=== PATIENT | female | born 1965 | race Caucasian/White ===

== ENCOUNTER → 2017-10-31 11:02 | Outpatient (CLI) | payer OTHER, SELFPAY | PROVIDERS: PCP Internal Medicine; Visit Provider Internal Medicine | DX: J11.1 Influenza due to unidentified influenza virus with other respiratory manifestations (principal) | CPT/HCPCS: 87275; 87276 ==

== ENCOUNTER → 2018-10-24 10:16 | Outpatient (POV) | payer OTHER, SELFPAY ==
--- NOTE | 2018-10-24 14:40 | XR_ITS ---
EXAM: XR cervical spine 5V HISTORY: Neck pain ITS.REASON: NECK AND LOW BACK PAIN ORDERING PHYSICIAN: Sharon Delatorre MD PATIENT AGE: 53 years COMPARISON: None FINDINGS: Normal alignment. No fracture or dislocation. No lytic or blastic change. There is 2 mm anterolisthesis of C4 on C5 and may be positional. No cervical ribs. No prevertebral soft tissue swelling. No significant degenerative change. The disc spaces are preserved. IMPRESSION: Essentially negative cervical spine
--- NOTE | 2018-10-24 14:40 | XR_ITS ---
EXAM: XR lumbar spine min 4V HISTORY: Low back pain ITS.REASON: NECK AND LOW BACK PAIN ORDERING PHYSICIAN: Sharon Delatorre MD PATIENT AGE: 53 years COMPARISON: None FINDINGS: Minimal lumbar curvature convex left. Normal alignment. No fracture or dislocation. No significant degenerative change. No lytic or blastic change Nonspecific 4 mm calcific density is present in the left upper quadrant and could represent renal stone. There is mild osteophyte formation along the right SI joint inferiorly IMPRESSION: Minimal levocurvature. Possible left nephrolithiasis
== END ==
PROVIDERS: PCP Internal Medicine; Visit Provider Dermatology
DX: M54.2 Cervicalgia (principal); M54.5 Low back pain; M53.3 Sacrococcygeal disorders, not elsewhere classified
CPT/HCPCS: 72050; 72110

== ENCOUNTER → 2019-03-20 14:25 | Outpatient (POV) | payer OTHER, SELFPAY | PROVIDERS: Visit Provider Dermatology | DX: Z00.00 Encounter for general adult medical examination without abnormal findings (principal) ==

== ENCOUNTER → 2019-03-27 09:50 | Outpatient (POV) | payer OTHER, SELFPAY | PROVIDERS: Visit Provider Dermatology | DX: Z00.00 Encounter for general adult medical examination without abnormal findings (principal) ==

== ENCOUNTER → 2019-04-10 08:30 | Outpatient (POV) | payer OTHER, SELFPAY | PROVIDERS: Visit Provider Dermatology | DX: Z00.00 Encounter for general adult medical examination without abnormal findings (principal) ==

== ENCOUNTER → 2019-10-03 07:26 | Outpatient (CLI) | payer OTHER, SELFPAY ==
[2019-10-03 08:34] LABS: Basophils # 0.1 K/mm3 (0-0.2); Eosinophils # 0.2 K/mm3 (0.0-0.4); Eosinophils % 3.5 % (0.1-12.0); Hematocrit 42.4 % (37.0-47.0); Hemoglobin 13.9 g/dL (12.2-16.2); Lymphocytes # 1.9 K/mm3 (0.7-4.5); Lymphocytes % 30.4 % (10-50); Mean Corpuscular HGB Conc 32.7 g/dL (31.8-35.4); Mean Corpuscular Volume 85.6 fl (81-99); Mean Platelet Volume 8.8 fl (7.4-10.4); Monocytes # 0.6 K/mm3 (0.1-1.0); Monocytes % 9.5 % (1.7-9.3); Neutrophils # 3.4 K/mm3 (1.8-7.8); Neutrophils % 55.5 % (37.0-80.0); Platelet Count 280 K/mm3 (142-424); Red Blood Count 4.96 M/mm3 (4.20-5.40); Red Cell Distribution Width 12.3 % (11.5-17.5); White Blood Count 6.1 K/mm3 (4.8-10.8)
[2019-10-03 11:22] LABS: Alanine Aminotransferase 21 U/L (12-78); Albumin Level 3.9 gm/dL (3.4-5.0); Albumin/Globulin Ratio 1.3 (1.1-1.8); Alkaline Phosphatase 103 U/L (46-116); Anion Gap 11.9 mEq/L (5-15); Bilirubin,Total 0.5 mg/dL (0.2-1.0); Blood Urea Nitrogen 14 mg/dL (7-18); Calcium 9.4 mg/dL (8.5-10.1); Carbon Dioxide 29 mmol/L (21.0-32.0); Chloride 103 mmol/L (98-107); Creatinine,Serum 0.72 mg/dL (0.55-1.02); Estimated Glomerular Filt Rate 85 ml/min (>60); GFR (African American) 103 ML/MIN (>60); Glucose 101 mg/dL (74-106); Potassium 3.9 mmoL/L (3.5-5.1); Sodium 140 mmol/L (136-145); Total Protein,Serum 6.9 gm/dL (6.4-8.2)
[2019-10-03 12:00] LABS: Aspartate Amino Transferase 27 U/L (15-37)
== END ==
PROVIDERS: Visit Provider Internal Medicine
DX: M06.9 Rheumatoid arthritis, unspecified (principal); Z51.81 Encounter for therapeutic drug level monitoring
CPT/HCPCS: 36415; 80053; 85025

== ENCOUNTER → 2019-10-22 14:24 | Outpatient (POV) | payer OTHER, SELFPAY | PROVIDERS: Visit Provider Nurse Practitioner Family | DX: Z00.00 Encounter for general adult medical examination without abnormal findings (principal) ==

== ENCOUNTER → 2020-01-29 08:02 | Outpatient (CLI) | payer OTHER, SELFPAY ==
[2020-01-29 08:08] LABS: MANUAL DIFFERENTIAL MANUAL DIFFERENTIAL (MANUAL DIFF)
[2020-01-29 08:31] LABS: Basophils # 0.1 K/mm3 (0-0.2); Basophils % 0.7 % (0.1-2.0); Eosinophils # 0.5 K/mm3 (0.0-0.4); Eosinophils % 5.4 % (0.1-12.0); Hematocrit 42.3 % (37.0-47.0); Hemoglobin 13.8 g/dL (12.2-16.2); Lymphocytes # 2.3 K/mm3 (0.7-4.5); Lymphocytes % 26.6 % (10-50); Mean Corpuscular HGB Conc 32.5 g/dL (31.8-35.4); Mean Corpuscular Hemoglobin 27.4 pg (27.0-31.2); Mean Corpuscular Volume 84.4 fl (81-99); Mean Platelet Volume 8.6 fl (7.4-10.4); Monocytes # 0.6 K/mm3 (0.1-1.0); Monocytes % 7.2 % (1.7-9.3); Neutrophils # 5.2 K/mm3 (1.8-7.8); Neutrophils % 60.2 % (37.0-80.0); Platelet Count 295 K/mm3 (142-424); Red Blood Count 5.01 M/mm3 (4.20-5.40); Red Cell Distribution Width 12.9 % (11.5-17.5); White Blood Count 8.6 K/mm3 (4.8-10.8)
[2020-01-29 08:44] LABS: Chloride 101 mmol/L (98-107); Potassium 4.2 mmoL/L (3.5-5.1); Sodium 135 mmol/L (136-145)
[2020-01-29 08:47] LABS: Alanine Aminotransferase 21 U/L (12-78); Albumin Level 4.6 g/dl (3.5-5.0); Albumin/Globulin Ratio 1.6 (1.1-1.8); Alkaline Phosphatase 99 U/L (38-126); Anion Gap 5.2 mEq/L (5-15); Aspartate Amino Transferase 37 U/L (14-36); Bilirubin,Total 0.4 mg/dl (0.2-1.3); Blood Urea Nitrogen 17 mg/dl (7-17); Calcium 9.5 mg/dl (8.4-10.2); Carbon Dioxide 33 mmol/L (22.0-30.0); Estimated Glomerular Filt Rate 75 ml/min (>60); GFR (African American) 91 ML/MIN (>60); Globulin 2.9 g/dL (1.3-3.2); Glucose 108 mg/dl (74-100); Total Protein,Serum 7.5 g/dl (6.3-8.2)
[2020-01-29 11:23] LABS: Lymphocytes % 32 % (10-50); Monocytes % 8 % (2-9); Neutrophils % 60 % (42-76); Total Cells Counted 100
[2020-01-29 11:24] LABS: Platelet Estimate Normal; RBC Morphology Normal
== END ==
PROVIDERS: Visit Provider Specialist
DX: G50.0 Trigeminal neuralgia (principal)
CPT/HCPCS: 36415; 80053; 85007; 85014; 85018; 85048; 85049

== ENCOUNTER → 2020-02-18 13:12 | Outpatient (POV) | payer OTHER, SELFPAY | PROVIDERS: PCP Specialist; Visit Provider Specialist | DX: M79.604 Pain in right leg (principal); M79.605 Pain in left leg; M79.601 Pain in right arm; R20.2 Paresthesia of skin | CPT/HCPCS: 95886; 95910 ==

== ENCOUNTER → 2020-02-18 14:37 | Outpatient (CLI) | payer OTHER, SELFPAY ==
--- NOTE | 2020-02-18 14:37 | MR_ITS ---
PROCEDURE: MR HEAD/BRAIN WO/W CON CLINICAL INDICATION: Eval of acute severe constant facial ear pain Severe facial pain and ear pain COMPARISON: No exams were available for comparison TECHNIQUE: Routine multiplanar multi echo sequences are performed without and with gadolinium enhancement. FINDINGS: No midline shift, mass effect, intracranial hemorrhage, hydrocephalus, or acute cortical infarction. There is normal sweet-white matter differentiation. No enhancing lesions are evident. The cerebellopontine angles, cerebellum, and brainstem are unremarkable. The pituitary, optic chiasm, corpus callosum, and craniocervical junction have an unremarkable appearance. No mastoid effusion or sinus air-fluid level. The IMPRESSION: Unremarkable MRI of the brain without and with contrast Dictated by: Jian Craig MD 02/19/2020 14:05 Electronically signed by Jian Craig MD in [facility] 02/19/2020 14:05
== END ==
PROVIDERS: PCP Internal Medicine; Visit Provider Specialist
DX: G50.0 Trigeminal neuralgia (principal); H92.09 Otalgia, unspecified ear; M54.2 Cervicalgia; R51 Headache
CPT/HCPCS: 70553; A9576

== ENCOUNTER → 2020-03-03 15:08 | Outpatient (CLI) | payer OTHER, SELFPAY ==
--- NOTE | 2020-03-03 15:12 | XR_ITS ---
PROCEDURE: XR CERVICAL SPINE W FLEX/EXT CLINICAL INDICATION: NECK PAIN COMPARISON: [id number] XR cervical spine 5V from 10/24/2018 FINDINGS: Normal alignment. No acute fracture or dislocation. Mild degenerative disc disease C3-C4 and C4-C5 and C6-C7. Mild uncovertebral hypertrophy with mild foraminal narrowing on the right at C3-C4. There is minimal anterolisthesis of C4 on C5 of 2 mm. This does not significantly increase with flexion and become normal on extension. No prevertebral soft tissue swelling. There is mild head tilt toward the right with mild cervical thoracic curvature convex left. IMPRESSION: Mild cervical spondylosis. Mild anterolisthesis of C4 on C5 which does not significantly increase in flexion and decreases on extension Dictated by: Jian Craig MD 03/03/2020 15:37 Electronically signed by Jian Craig MD in [facility] 03/03/2020 15:37
== END ==
PROVIDERS: PCP Internal Medicine; Visit Provider Specialist
DX: M54.2 Cervicalgia (principal)
CPT/HCPCS: 72052

== ENCOUNTER → 2020-03-12 13:03 | Outpatient (CLI) | payer OTHER, SELFPAY ==
--- NOTE | 2020-03-12 13:03 | MR_ITS ---
PROCEDURE: MR CERVICAL SPINE WO CON CLINICAL INDICATION: evaluation for cord compression COMPARISON: No exams were available for comparison TECHNIQUE: Standard multiplanar multiecho sequences are performed without contrast. 3-D MIP and myelographic images are also rendered and reviewed FINDINGS: There is uniform fat marrow signal hyperintensity. Disc spaces, spinal cord, mid brain, and the cerebellar tonsils are unremarkable. Bony structures are in good alignment. At the C2-3 disc space there is mild overgrowth of the right uncovertebral joint producing mild neural foraminal stenosis. At the C3-4 disc space there is mild overgrowth of the right uncovertebral joint producing mild right neural foraminal stenosis. At the C4-C5 disc spaces there is no significant spinal stenosis. At the C5-C6 disc space there is mild overgrowth of the bilateral uncovertebral joints producing mild bilateral neural foraminal stenosis, left greater than right At the C6-7 disc space there is a broad-based disc protrusion producing mild central canal and mild right neural foraminal stenosis. At the C7-T1 disc space there is no significant spinal stenosis. The paracervical soft tissues are unremarkable. IMPRESSION: Mild multilevel spinal stenosis as described above. Dictated by: Surya Colindres 03/12/2020 14:30 Electronically signed by Surya Colindres in [place] 03/12/2020 14:30
[2020-03-12 15:29] LABS: Blood Urea Nitrogen 12 mg/dl (7-17); Carbon Dioxide 37 mmol/L (22.0-30.0); Chloride 95 mmol/L (98-107); Estimated Glomerular Filt Rate 88 ml/min (>60); GFR (African American) 106 ML/MIN (>60); Glucose 121 mg/dl (74-100); Sodium 137 mmol/L (136-145)
== END ==
PROVIDERS: PCP Internal Medicine; Visit Provider Specialist
DX: M54.2 Cervicalgia (principal); G89.29 Other chronic pain; R20.2 Paresthesia of skin
CPT/HCPCS: 36415; 72141; 76376; 80048; 82607

== ENCOUNTER → 2020-03-12 14:11 | Outpatient (CLI) | payer OTHER, SELFPAY | PROVIDERS: Visit Provider Specialist | DX: M54.2 Cervicalgia (principal) | CPT/HCPCS: 36415; 80048; 82607 ==

== ENCOUNTER → 2020-04-07 10:32 | Outpatient (CLI) | payer OTHER, SELFPAY | PROVIDERS: PCP Internal Medicine; Visit Provider Specialist | DX: E87.2 Acidosis (principal); M54.2 Cervicalgia | CPT/HCPCS: 94762 ==

== ENCOUNTER → 2020-04-26 11:22 | Outpatient (CLI) | payer OTHER, SELFPAY ==
[2020-04-26 11:41] LABS: Basophils # 0.1 K/mm3 (0-0.2); Basophils % 0.6 % (0.1-2.0); Eosinophils # 0.3 K/mm3 (0.0-0.4); Eosinophils % 2.6 % (0.1-12.0); Hematocrit 44.6 % (37.0-47.0); Hemoglobin 15.5 g/dL (12.2-16.2); Lymphocytes % 17.7 % (10-50); Mean Corpuscular HGB Conc 34.6 g/dL (31.8-35.4); Mean Corpuscular Hemoglobin 30.3 pg (27.0-31.2); Mean Corpuscular Volume 87.5 fl (81-99); Mean Platelet Volume 8.6 fl (7.4-10.4); Monocytes # 0.5 K/mm3 (0.1-1.0); Monocytes % 4.8 % (1.7-9.3); Neutrophils # 8.3 K/mm3 (1.8-7.8); Neutrophils % 74.3 % (37.0-80.0); Platelet Count 246 K/mm3 (142-424); Red Cell Distribution Width 12.6 % (11.5-17.5); White Blood Count 11.2 K/mm3 (4.8-10.8)
[2020-04-26 12:23] LABS: Chloride 97 mmol/L (98-107); Potassium 4.2 mmoL/L (3.5-5.1); Sodium 139 mmol/L (136-145)
[2020-04-26 12:26] LABS: Alanine Aminotransferase 12 U/L (12-78); Albumin Level 4.5 g/dl (3.5-5.0); Albumin/Globulin Ratio 1.4 (1.1-1.8); Alkaline Phosphatase 143 U/L (38-126); Anion Gap 15.2 mEq/L (5-15); Aspartate Amino Transferase 26 U/L (14-36); Bilirubin,Total 0.5 mg/dl (0.2-1.3); Blood Urea Nitrogen 13 mg/dl (7-17); Calcium 9.8 mg/dl (8.4-10.2); Carbon Dioxide 31 mmol/L (22.0-30.0); Estimated Glomerular Filt Rate 88 ml/min (>60); GFR (African American) 106 ML/MIN (>60); Globulin 3.2 g/dL (1.3-3.2); Glucose 100 mg/dl (74-100); Total Protein,Serum 7.7 g/dl (6.3-8.2)
[2020-04-26 12:58] LABS: Thyroid Stimulating Hormone 1.87 uIU/mL (0.465-4.68)
== END ==
PROVIDERS: Visit Provider Internal Medicine
DX: E03.9 Hypothyroidism, unspecified (principal); K52.9 Noninfective gastroenteritis and colitis, unspecified
CPT/HCPCS: 36415; 80053; 84443; 85025

== ENCOUNTER → 2020-09-04 08:43 | Outpatient (CLI) | payer OTHER, SELFPAY ==
[2020-09-04 09:45] LABS: Chloride 99 mmol/L (98-107); Potassium 4.3 mmoL/L (3.5-5.1); Sodium 139 mmol/L (136-145)
[2020-09-04 09:47] LABS: Blood Urea Nitrogen 14 mg/dl (7-17); Estimated Glomerular Filt Rate 75 ml/min (>60); GFR (African American) 90 ML/MIN (>60)
[2020-09-04 09:48] LABS: Alanine Aminotransferase 12 U/L (12-78); Albumin Level 4.8 g/dl (3.5-5.0); Albumin/Globulin Ratio 1.5 (1.1-1.8); Alkaline Phosphatase 137 U/L (38-126); Anion Gap 11.3 mEq/L (5-15); Aspartate Amino Transferase 27 U/L (14-36); Bilirubin,Total 0.4 mg/dl (0.2-1.3); Carbon Dioxide 33 mmol/L (22.0-30.0); Globulin 3.2 g/dL (1.3-3.2); Glucose 106 mg/dl (74-100)
[2020-09-04 09:53] LABS: C-Reactive Protein 3.5 mg/L (0-4)
[2020-09-04 10:02] LABS: Basophils # 0.1 K/mm3 (0-0.2); Eosinophils # 0.3 K/mm3 (0.0-0.4); Eosinophils % 3.7 % (0.1-12.0); Hematocrit 43.6 % (37.0-47.0); Hemoglobin 14.6 g/dL (12.2-16.2); Lymphocytes # 2.3 K/mm3 (0.7-4.5); Lymphocytes % 31.9 % (10-50); Mean Corpuscular HGB Conc 33.5 g/dL (31.8-35.4); Mean Corpuscular Hemoglobin 29.6 pg (27.0-31.2); Mean Corpuscular Volume 88.2 fl (81-99); Mean Platelet Volume 8.3 fl (7.4-10.4); Monocytes # 0.6 K/mm3 (0.1-1.0); Neutrophils % 55.5 % (37.0-80.0); Platelet Count 283 K/mm3 (142-424); Red Blood Count 4.95 M/mm3 (4.20-5.40); White Blood Count 7.1 K/mm3 (4.8-10.8)
[2020-09-04 10:36] LABS: Erythrocyte Sedimentation Rate 17 mm/hr (0-30)
== END ==
PROVIDERS: Visit Provider Internal Medicine
DX: M05.9 Rheumatoid arthritis with rheumatoid factor, unspecified (principal); Z51.81 Encounter for therapeutic drug level monitoring; Z91.89 Other specified personal risk factors, not elsewhere classified
CPT/HCPCS: 36415; 80053; 85025; 85651; 86140

== ENCOUNTER → 2020-09-30 13:55 | Outpatient (CLI) | payer OTHER, SELFPAY ==
[2020-10-01 09:19] LABS: Covid-19 Nasal PCR Sendout P&C NEGATIVE
== END ==
PROVIDERS: PCP Internal Medicine; Visit Provider Internal Medicine
DX: Z11.52 Encounter for screening for COVID-19 (principal)
CPT/HCPCS: U0004

== ENCOUNTER → 2020-12-29 12:12 | Outpatient (CLI) | payer OTHER, SELFPAY ==
[2020-12-29 13:14] LABS: Hemoglobin A1C 5.5 % (4.0-6.0)
[2020-12-29 13:40] LABS: Ferritin 201 ng/ml (11.1-264)
== END ==
PROVIDERS: Visit Provider Nurse Practitioner Family
DX: E83.10 Disorder of iron metabolism, unspecified (principal); R73.9 Hyperglycemia, unspecified; G25.81 Restless legs syndrome
CPT/HCPCS: 82728; 83036

== ENCOUNTER → 2021-01-26 07:30 | Outpatient (CLI) | payer OTHER, SELFPAY ==
[2021-01-26 08:27] LABS: Basophils # 0.1 K/mm3 (0-0.2); Basophils % 1.3 % (0.1-2.0); Eosinophils # 0.5 K/mm3 (0.0-0.4); Eosinophils % 7.9 % (0.1-12.0); Hematocrit 41.3 % (37.0-47.0); Hemoglobin 13.9 g/dL (12.2-16.2); Lymphocytes # 2.4 K/mm3 (0.7-4.5); Mean Corpuscular HGB Conc 33.7 g/dL (31.8-35.4); Mean Corpuscular Hemoglobin 28.6 pg (27.0-31.2); Mean Corpuscular Volume 84.9 fl (81-99); Mean Platelet Volume 8.5 fl (7.4-10.4); Monocytes # 0.4 K/mm3 (0.1-1.0); Neutrophils # 2.8 K/mm3 (1.8-7.8); Neutrophils % 44.9 % (37.0-80.0); Platelet Count 263 K/mm3 (142-424); Red Blood Count 4.86 M/mm3 (4.20-5.40); Red Cell Distribution Width 12.8 % (11.5-17.5); White Blood Count 6.2 K/mm3 (4.8-10.8)
[2021-01-26 09:12] LABS: Alanine Aminotransferase 13 U/L (12-78); Albumin Level 4.6 g/dl (3.5-5.0); Albumin/Globulin Ratio 1.6 (1.1-1.8); Alkaline Phosphatase 112 U/L (38-126); Anion Gap 10.5 mEq/L (5-15); Aspartate Amino Transferase 35 U/L (14-36); Bilirubin,Total 0.5 mg/dl (0.2-1.3); Blood Urea Nitrogen 16 mg/dl (7-17); Calcium 9.7 mg/dl (8.4-10.2); Carbon Dioxide 31 mmol/L (22.0-30.0); Chloride 102 mmol/L (98-107); Estimated Glomerular Filt Rate 75 ml/min (>60); GFR (African American) 90 ML/MIN (>60); Globulin 2.9 g/dL (1.3-3.2); Glucose 99 mg/dl (74-100); Potassium 4.5 mmoL/L (3.5-5.1); Sodium 139 mmol/L (136-145); Total Protein,Serum 7.5 g/dl (6.3-8.2)
[2021-01-26 09:17] LABS: C-Reactive Protein 3.1 mg/L (0-4)
[2021-01-26 09:24] LABS: Erythrocyte Sedimentation Rate 12 mm/hr (0-30)
== END ==
PROVIDERS: Visit Provider Nurse Practitioner Family
DX: M05.9 Rheumatoid arthritis with rheumatoid factor, unspecified (principal); Z51.81 Encounter for therapeutic drug level monitoring
CPT/HCPCS: 36415; 80053; 85025; 85651; 86140

== ENCOUNTER → 2021-03-24 09:58 | Outpatient (CLI) | payer BC, SELFPAY ==
--- NOTE | 2021-03-24 10:04 | XR_ITS ---
PROCEDURE: XR CERVICAL SPINE 5V CLINICAL INDICATION: LT NECK PAIN COMPARISON: CR XR CERVICAL SPINE W FLEX/EXT from 03/03/2020 FINDINGS: No fracture or dislocation. No lytic or blastic change. There is normal mineralization. Normal alignment. The disc spaces are well preserved. No foraminal narrowing apparent. No cervical rib. There is 1-2 mm anterolisthesis of C4 on C5 which may be physiologic Other findings:None. IMPRESSION: No acute findings, essentially negative cervical spine Dictated by: Jian Craig MD 03/24/2021 11:28 Jian Craig MD in [facility] 03/24/2021 11:28
== END ==
PROVIDERS: PCP Internal Medicine; Visit Provider Internal Medicine
DX: M54.2 Cervicalgia (principal)
CPT/HCPCS: 72050

== ENCOUNTER → 2021-03-31 10:28 | Outpatient (CLI) | payer BC, SELFPAY ==
--- NOTE | 2021-03-31 10:32 | XR_ITS ---
PROCEDURE: XR CHEST 2V CLINICAL HISTORY: SOB WITH EXERTION COMPARISON: No exams were available for comparison FINDINGS: The cardiomediastinal silhouette and pulmonary vascularity are within normal limits. The lungs are clear without infiltrates, suspicious nodules, or pleural effusions. There is evidence of old granulomatous disease. Mild midthoracic curvature convex right. IMPRESSION: No acute findings. Dictated by: Jian Craig MD 03/31/2021 11:14 Jian Craig MD in [place] 03/31/2021 11:14
== END ==
PROVIDERS: PCP Internal Medicine; Visit Provider Internal Medicine
DX: R06.02 Shortness of breath (principal); R06.09 Other forms of dyspnea
CPT/HCPCS: 71046

== ENCOUNTER → 2021-05-21 07:51 | Outpatient (CLI) | payer BC, SELFPAY ==
[2021-05-21 08:38] LABS: Basophils # 0.1 K/mm3 (0-0.2); Eosinophils # 0.5 K/mm3 (0.0-0.4); Eosinophils % 5.7 % (0.1-12.0); Hematocrit 43.4 % (37.0-47.0); Hemoglobin 14.1 g/dL (12.2-16.2); Lymphocytes # 2.6 K/mm3 (0.7-4.5); Lymphocytes % 32.3 % (10-50); Mean Corpuscular HGB Conc 32.5 g/dL (31.8-35.4); Mean Corpuscular Hemoglobin 28.7 pg (27.0-31.2); Mean Corpuscular Volume 88.4 fl (81-99); Mean Platelet Volume 8.9 fl (7.4-10.4); Monocytes # 0.7 K/mm3 (0.1-1.0); Monocytes % 8.2 % (1.7-9.3); Neutrophils # 4.2 K/mm3 (1.8-7.8); Neutrophils % 52.8 % (37.0-80.0); Platelet Count 295 K/mm3 (142-424); Red Blood Count 4.91 M/mm3 (4.20-5.40); Red Cell Distribution Width 12.9 % (11.5-17.5)
[2021-05-21 08:50] LABS: Chloride 103 mmol/L (98-107)
[2021-05-21 08:51] LABS: Potassium 4.4 mmoL/L (3.5-5.1); Sodium 141 mmol/L (136-145)
[2021-05-21 08:53] LABS: Alanine Aminotransferase 20 U/L (12-78); Alkaline Phosphatase 105 U/L (38-126); Anion Gap 12.4 mEq/L (5-15); Aspartate Amino Transferase 32 U/L (14-36); Bilirubin,Total 0.2 mg/dl (0.2-1.3); Blood Urea Nitrogen 13 mg/dl (7-17); Carbon Dioxide 30 mmol/L (22.0-30.0); Estimated Glomerular Filt Rate 75 ml/min (>60); GFR (African American) 90 ML/MIN (>60)
[2021-05-21 08:54] LABS: Albumin Level 4.1 g/dl (3.5-5.0); Albumin/Globulin Ratio 1.4 (1.1-1.8); Calcium 9.5 mg/dl (8.4-10.2); Globulin 2.9 g/dL (1.3-3.2); Glucose 102 mg/dl (74-100)
[2021-05-21 08:59] LABS: C-Reactive Protein 2.8 mg/L (0-4)
[2021-05-21 09:16] LABS: Erythrocyte Sedimentation Rate 12 mm/hr (0-30)
== END ==
PROVIDERS: Visit Provider Internal Medicine
DX: M05.9 Rheumatoid arthritis with rheumatoid factor, unspecified (principal); Z51.81 Encounter for therapeutic drug level monitoring
CPT/HCPCS: 36415; 80053; 85025; 85651; 86140

== ENCOUNTER → 2021-06-11 08:56 | Outpatient (CLI) | payer BC, SELFPAY | PROVIDERS: PCP Internal Medicine; Visit Provider Nurse Practitioner | DX: Z20.822 Contact with and (suspected) exposure to COVID-19 (principal); U07.1 COVID-19 | CPT/HCPCS: C9803; U0003; U0005 ==

== ENCOUNTER 2021-06-18 07:51 | Outpatient (CLI) | payer BC, SELFPAY ==
[2021-06-18] VITALS (8 sets, daily range): BP systolic 115–131; BP diastolic 70–85; PULSE 62–70; RESP 16; TEMP 36.8–37.1; O2SAT 95–97
== END 2021-06-18 11:02 | disposition home or self-care (01) ==
PROVIDERS: PCP Internal Medicine; Visit Provider Internal Medicine
DX: U07.1 COVID-19 (principal)
CPT/HCPCS: 96365

== ENCOUNTER → 2021-10-08 08:14 | Outpatient (CLI) | payer BC, SELFPAY | PROVIDERS: PCP Internal Medicine; Visit Provider Nurse Practitioner | DX: Z20.822 Contact with and (suspected) exposure to COVID-19 (principal) | CPT/HCPCS: C9803; U0003; U0005 ==

== ENCOUNTER → 2021-10-12 10:12 | Outpatient (CLI) | payer BC, SELFPAY ==
[2021-10-12 11:43] LABS: Basophils # 0.1 K/mm3 (0-0.2); Basophils % 1.3 % (0.1-2.0); Eosinophils # 0.2 K/mm3 (0.0-0.4); Eosinophils % 3.8 % (0.1-12.0); Hematocrit 44.8 % (37.0-47.0); Hemoglobin 14.6 g/dL (12.2-16.2); Lymphocytes # 1.9 K/mm3 (0.7-4.5); Lymphocytes % 29.6 % (10-50); Mean Corpuscular HGB Conc 32.6 g/dL (31.8-35.4); Mean Corpuscular Hemoglobin 28.7 pg (27.0-31.2); Mean Corpuscular Volume 88.2 fl (81-99); Mean Platelet Volume 8.7 fl (7.4-10.4); Monocytes # 0.5 K/mm3 (0.1-1.0); Monocytes % 7.3 % (1.7-9.3); Neutrophils # 3.7 K/mm3 (1.8-7.8); Neutrophils % 58.1 % (37.0-80.0); Platelet Count 280 K/mm3 (142-424); Red Blood Count 5.08 M/mm3 (4.20-5.40); Red Cell Distribution Width 12.9 % (11.5-17.5); White Blood Count 6.4 K/mm3 (4.8-10.8)
[2021-10-12 12:56] LABS: Alanine Aminotransferase 13 U/L (12-78); Albumin/Globulin Ratio 1.6 (1.1-1.8); Alkaline Phosphatase 121 U/L (38-126); Anion Gap 13.3 mEq/L (5-15); Aspartate Amino Transferase 36 U/L (14-36); Bilirubin,Total 0.4 mg/dl (0.2-1.3); Blood Urea Nitrogen 17 mg/dl (7-17); Calcium 10.2 mg/dl (8.4-10.2); Carbon Dioxide 32 mmol/L (22.0-30.0); Chloride 97 mmol/L (98-107); Estimated Glomerular Filt Rate 74 ml/min (>60); GFR (African American) 90 ML/MIN (>60); Globulin 3.2 g/dL (1.3-3.2); Glucose 92 mg/dl (74-100); Potassium 4.3 mmoL/L (3.5-5.1); Sodium 138 mmol/L (136-145); Total Protein,Serum 8.2 g/dl (6.3-8.2)
[2021-10-12 13:01] LABS: C-Reactive Protein 2.6 mg/L (0-4)
[2021-10-12 13:26] LABS: Thyroid Stimulating Hormone 1.79 uIU/mL (0.465-4.68)
[2021-10-12 13:39] LABS: Erythrocyte Sedimentation Rate 9 mm/hr (0-30)
== END ==
PROVIDERS: PCP Internal Medicine; Visit Provider Nurse Practitioner Family
DX: M05.9 Rheumatoid arthritis with rheumatoid factor, unspecified (principal); E03.9 Hypothyroidism, unspecified; Z51.81 Encounter for therapeutic drug level monitoring
CPT/HCPCS: 36415; 80053; 84443; 85025; 85651; 86140

== ENCOUNTER → 2022-01-19 07:59 | Outpatient (CLI) | payer BC, SELFPAY ==
[2022-01-19 10:06] LABS: Hematocrit 43.4 % (37.0-47.0); Hemoglobin 14.5 g/dL (12.2-16.2); Mean Corpuscular Volume 87.4 fl (81-99); Red Blood Count 4.96 M/mm3 (4.20-5.40)
[2022-01-19 10:07] LABS: Basophils # 0.2 K/mm3 (0-0.2); Basophils % 2.2 % (0.1-2.0); Eosinophils # 0.4 K/mm3 (0.0-0.4); Eosinophils % 5.1 % (0.1-12.0); Erythrocyte Sedimentation Rate 12 mm/hr (0-30); Lymphocytes # 2.1 K/mm3 (0.7-4.5); Lymphocytes % 29.1 % (10-50); Mean Corpuscular HGB Conc 33.4 g/dL (31.8-35.4); Mean Corpuscular Hemoglobin 29.2 pg (27.0-31.2); Mean Platelet Volume 8.8 fl (7.4-10.4); Monocytes # 0.5 K/mm3 (0.1-1.0); Monocytes % 7.3 % (1.7-9.3); Neutrophils % 56.2 % (37.0-80.0); Platelet Count 267 K/mm3 (142-424); Red Cell Distribution Width 13.5 % (11.5-17.5)
[2022-01-19 10:09] LABS: Alanine Aminotransferase 12 U/L (12-78); Albumin Level 4.4 g/dl (3.5-5.0); Albumin/Globulin Ratio 1.7 (1.1-1.8); Alkaline Phosphatase 120 U/L (38-126); Anion Gap 11.2 mEq/L (5-15); Aspartate Amino Transferase 29 U/L (14-36); Bilirubin,Total 0.6 mg/dl (0.2-1.3); Blood Urea Nitrogen 14 mg/dl (7-17); Calcium 9.5 mg/dl (8.4-10.2); Carbon Dioxide 29 mmol/L (22.0-30.0); Chloride 101 mmol/L (98-107); Estimated Glomerular Filt Rate 87 ml/min (>60); GFR (African American) 105 ML/MIN (>60); Globulin 2.6 g/dL (1.3-3.2); Glucose 102 mg/dl (74-100); Potassium 4.2 mmoL/L (3.5-5.1); Sodium 137 mmol/L (136-145)
[2022-01-19 10:14] LABS: C-Reactive Protein 2.8 mg/L (0-4)
[2022-01-19 11:18] LABS: Carbamazepine (Tegretol) 5.7 ug/ml (4.0-12.0)
== END ==
PROVIDERS: PCP Nurse Practitioner Family; Visit Provider Nurse Practitioner Family
DX: M05.9 Rheumatoid arthritis with rheumatoid factor, unspecified (principal); Z51.81 Encounter for therapeutic drug level monitoring
CPT/HCPCS: 36415; 80053; 80156; 85025; 85651; 86140

== ENCOUNTER → 2022-02-09 10:21 | Outpatient (CLI) | payer BC, SELFPAY ==
--- NOTE | 2022-02-09 10:28 | XR_ITS ---
FINAL REPORT CLINICAL HISTORY: FATIGUE COMPARISON: March 31, 2021 FINDINGS: PA and lateral views of the chest were obtained. The cardiac and mediastinal silhouettes are within normal limits. There is granulomatous disease. There is no pleural effusion or pneumothorax. No acute osseous abnormality is identified. IMPRESSION: No radiographic evidence of acute cardiac or pulmonary disease. Reviewed, Interpreted and Dictated by Chela Pereira MD Transcribed by Delia Harris Authenticated by Chela Pereira MD on 02/09/2022 11:53:[address] [facility]
--- NOTE | 2022-02-09 10:50 | ECG_ITS ---
APPROVED REPORT Exam: Resting ECG HR:64 bpm ECG Measurements Heart Rate 64 AXES ND 136 P 48 QRSd 70 QRS 37 QT 393 T 63 QTc 402 Conclusion SINUS RHYTHM Normal ECG Electronically signed by : Fredrick Oseguera MD 02/10/2022 16:10:13
== END ==
PROVIDERS: PCP Internal Medicine; Visit Provider Internal Medicine
DX: R06.09 Other forms of dyspnea (principal); R53.83 Other fatigue
CPT/HCPCS: 71046; 93005

== ENCOUNTER → 2022-02-11 14:14 | Outpatient (CLI) | payer BC, SELFPAY ==
--- NOTE | 2022-02-11 14:22 | CA_ITS ---
APPROVED REPORT EXAM: Comprehensive 2D, Doppler, and color-flow Echocardiogram Fertilizing Machine Operator: Zuly Slater CRT Ht: 5 ft 5 in Wt: 142lbs BSA: 1.71 BP: 126/72 mmHg Indications: SOB, HTN 2D Dimensions LVOT 1.68 cm (M/F) 1.5-2.5 LA Volume 28.90 mL LA Volume Index 16.90 mL/m2 (M/F) 16-34 M-Mode Dimensions RVDd 2.16 cm (0.9-2.6) LA Diam 2.94 cm (1.9-4.0) LVDd 3.98 cm (3.5-5.7) Ao Diam 2.92 cm (2.0-3.7) LVDs 2.50 cm (3.5-5.7) IVSd 1.18 cm (0.6-1.1) PWd 0.40 cm (0.6-1.1) EF (Teich) 67.80% FS 37.20% EDV (Teich) 69.20 mL TAPSE 2.58 (<1.7) ESV (Teich) 22.30 mL LV Diastology E Decel Time 190.00 (160-240 msec) E/A Ratio 0.75 MED E' 10.30 (< 7 cm/sec) MED A' 11.30 cm/s E'/MED E' Ratio 6.24 (>14) LAT E' 10.30 (<10 cm/sec) LAT A' 10.60 cm/s E/LAT E' Ratio 6.24 (>14) Aortic Valve AI PHT 555.00 ms AO Peak GR. 10.00 mmHg Mitral Valve MV E Max Robel. 64.00 (40-130 cm/s) MV A Velocity 85.00 (40-130 cm/s) E/A Ratio 0.75 MV Decel. Time 190.00 (160-240 ms) MV PHT 56.00 ms Pulmonary Valve PV Peak Velocity 84.00 (50-150 cm/s) Tricuspid Valve TR P. Velocity 310.00 cm/s RAP Estimate 10.00 mmHg RVSP 48.50 mmHg Left Ventricle Left atrium is qualitatively mildly enlarged, left ventricle is normal size, there is no concentric left ventricular hypertrophy, estimated ejection fraction 55% with no regional wall motion abnormality, Doppler evidence of impaired LV relaxation seen without tissue Doppler evidence of raise left atrial pressure. Right Ventricle Right atrium and right ventricle are normal size and contractility. Aortic Valve Aortic valve is minimally thickened and fibrosed there is no aortic stenosis, there is trace aortic insufficiency. Mitral Valve Mitral valve grossly normal, there is trace mitral regurgitation. Tricuspid Valve Tricuspid grossly normal, there is trace tricuspid regurgitation, tricuspid regurgitation jet velocity is inadequate for calculation of the right ventricular systolic pressure. Pulmonic Valve Pulmonic valve is poorly visualized. Great Vessels Aortic root is normal size. Inferior vena cava is poorly visualized. Pericardium No significant pericardial effusion. Conclusion 1. Normal left ventricular size, preserved left ventricular systolic function, estimated ejection fraction 55% with no regional wall motion abnormality, Doppler evidence of impaired LV relaxation seen. 2. Trace aortic, mitral and tricuspid regurgitation. 3. No significant pericardial effusion. 4. Inferior vena cava is poorly visualized. Electronically signed by : Daron Gutierrez MD 02/12/2022 13:11:02
== END ==
PROVIDERS: PCP Internal Medicine; Visit Provider Internal Medicine
DX: R06.09 Other forms of dyspnea (principal); R53.83 Other fatigue
CPT/HCPCS: 93306

== ENCOUNTER 2022-03-11 22:33 | Emergency (ER) | payer BC, SELFPAY ==
[2022-03-11 22:41] VITALS: BP 189/97; PULSE 73; RESP 17; TEMP 36.7; O2SAT 97; BMI 23.3
--- NOTE | 2022-03-11 22:56 | ECG_ITS ---
APPROVED REPORT Exam: Resting ECG HR:64 bpm ECG Measurements Heart Rate 64 AXES MA 144 P 75 QRSd 74 QRS 71 QT 411 T 82 QTc 420 Conclusion SINUS RHYTHM NORMAL ECG UNCONFIRMED REPORT Electronically signed by : Landen Vazquez MD 03/12/2022 17:31:22
[2022-03-11 22:59] VITALS: BP 173/84; PULSE 66; O2SAT 95
[2022-03-11 23:00] LABS: Microscopic, Urine URINE MICROSCOPIC (MICROSCOPIC)
[2022-03-11 23:02] LABS: Basophils # 0.3 K/mm3 (0-0.2); Basophils % 2.9 % (0.1-2.0); Eosinophils # 0.5 K/mm3 (0.0-0.4); Eosinophils % 4.3 % (0.1-12.0); Hematocrit 45.2 % (37.0-47.0); Hemoglobin 14.9 g/dL (12.2-16.2); Lymphocytes # 3.3 K/mm3 (0.7-4.5); Lymphocytes % 29.1 % (10-50); Mean Corpuscular HGB Conc 32.9 g/dL (31.8-35.4); Mean Corpuscular Hemoglobin 29.3 pg (27.0-31.2); Mean Corpuscular Volume 89.1 fl (81-99); Mean Platelet Volume 8.9 fl (7.4-10.4); Monocytes # 0.6 K/mm3 (0.1-1.0); Monocytes % 5.6 % (1.7-9.3); Neutrophils # 6.7 K/mm3 (1.8-7.8); Neutrophils % 58.1 % (37.0-80.0); Platelet Count 283 K/mm3 (142-424); Red Blood Count 5.07 M/mm3 (4.20-5.40); Red Cell Distribution Width 13.1 % (11.5-17.5); White Blood Count 11.5 K/mm3 (4.8-10.8)
[2022-03-11 23:05] LABS: Appearance,Urine CLEAR (Clear); Bilirubin,Urine Negative (Negative); Blood, Urine Negative (Negative); Color,Urine YELLOW (Yellow); Glucose,Urine (UA) Negative (Negative); Ketones,Urine Negative (Negative); Leukocyte Esterase,Urine Negative (Negative); Nitrate,Urine Negative (Negative); Protein,Urine Negative (Negative); Specific Gravity, Urine <= 1.005 (1.005-1.030); Urobilinogen,Urine 0.2 EU/dl (0.2)
[2022-03-11 23:09] LABS: Amylase 84 U/L (30-110)
[2022-03-11 23:10] LABS: Lipase 105 U/L (23-300)
[2022-03-11 23:16] LABS: Bacteria,Urine Trace /lpf; WBC,Urine Occasional #/hpf (0-3)
[2022-03-11 23:30] VITALS: BP 136/81; PULSE 67; O2SAT 95
--- NOTE | 2022-03-11 23:36 | HMH.EDNVD ---
ED Disposition Clinical Impression: Cholelithiasis Qualifiers: Cholelithiasis location: gallbladder Cholecystitis presence: without cholecystitis Biliary obstruction: without biliary obstruction Qualified Code(s): K80.20 - Calculus of gallbladder without cholecystitis without obstruction Disposition: Home, Self-Care Condition on Discharge: Good Instructions: DI for General Gallbladder Conditions Additional Instructions: call pcp for follow up Referrals: Fredrick Oseguera MD [Primary Care Provider] - Lavelle Aguilar MD [Staff Physician] - - Critical Care Critical Care Time: No Attestation: On 03/11/22, the high probability of a clinically significant, sudden or life threatening deterioration of the following system(s) required my full and direct attention, intervention and personal management. The time I documented below is in addition to time spent performing reported procedures but includes the following listed in this critical care notation. Medical Decision Making - Medical Records Medical records reviewed: Yes: I reviewed the patient's medical records. - Navi Inquiry Pt receiving controlled substance: No Vital Signs: 03/11/22 22:41 03/11/22 22:59 Temperature 98.1 F Temperature Source Oral Pulse Rate 66 Pulse Rate [Right Brachial] 73 Respiratory Rate 17 Blood Pressure 173/84 H Blood Pressure [Right Arm] 189/97 H Blood Pressure Mean [Right Arm] 127 Blood Pressure Source [Right Arm] Automatic Cuff Blood Pressure Position [Right Arm] Sitting 02 Sat by Pulse Oximetry 97 95 Oxygen Delivery Method Room Air Room Air - Lab Data Lab results reviewed: Yes: I reviewed the patient's lab results. Lab Results 03/11/22 22:44: WBC 11.5 H, RBC 5.07, Hgb 14.9, Hct 45.2, MCV 89.1, MCH 29.3, MCHC 32.9, RDW 13.1, Plt Count 283, MPV 8.9, Neut % (Auto) 58.1, Lymph % (Auto) 29.1, [place] % (Auto) 5.6, Eos % (Auto) 4.3, Baso % (Auto) 2.9 H, Neut # (Auto) 6.7, Lymph # (Auto) 3.3, [place] # (Auto) 0.6, Eos # (Auto) 0.5 H, Baso # (Auto) 0.3 H 03/11/22 22:44: Troponin I < 0.01, Amylase 84, Lipase 105 03/11/22 22:44: Sodium 136, Potassium 3.8, Chloride 100, Carbon Dioxide 30, Anion Gap 9.8, BUN 14, Creatinine 0.70, Estimated Creat Clear 91, Estimated GFR 87, Est GFR ( Amer) 105, Glucose 149 H, Calcium 9.5, Total Bilirubin 0.4, AST 39 H, ALT 15, Alkaline Phosphatase 138 H, Total Protein 8.2, Albumin 4.6, Globulin 3.6 H, Albumin/Globulin Ratio 1.3 03/11/22 22:53: Urine Color Yellow, Urine Appearance Clear, Urine pH 6.0, Ur Specific [place] <= 1.005, Urine Protein Negative, Urine Glucose (UA) Negative, Urine Ketones Negative, Urine Blood Negative, Urine Nitrate Negative, Urine Bilirubin Negative, Urine Urobilinogen 0.2, Ur Leukocyte Esterase Negative, Urine WBC Occasional, Ur Squamous Epith Cells 3-5, Urine Bacteria Trace 03/12/22 01:37: Troponin I < 0.01 Result diagrams: 03/11/22 22:44 03/11/22 22:44 Orders (Tests/Meds): ED MEDICATIONS Generic Name Dose Route Start Last Admin Trade Name Freq PRN Reason Stop Dose Admin Sodium Chloride 1,000 mls @ 999 mls/hr 03/11/22 23:45 03/11/22 23:54 Sod Chlor 0.9% 1000ml Bag IV 03/12/22 00:45 999 mls/hr .Q1H1M NUZHAT Administration Sodium Chloride 8 ml 03/11/22 23:42 Sodium Chloride 0.9% 10ml Vial IV 04/10/22 23:41 NEEDED PRN dilute pepcid Discontinued Medications Generic Name Dose Route Start Last Admin Trade Name Freq PRN Reason Stop Dose Admin Famotidine 20 mg 03/11/22 23:42 03/11/22 23:53 Famotidine 20mg/2ml Vial IV 03/11/22 23:43 20 mg ONCE ONE Administration Iopamidol 75 ml 03/12/22 00:20 03/12/22 00:25 Iopamidol-370 (76%);100ml Bottle IV 03/12/22 00:21 75 ml ONCE ONE Administration Metoclopramide HCl 10 mg 03/11/22 23:42 03/11/22 23:53 Metoclopramide Hcl 10mg/2ml Vial IVP 03/11/22 23:43 10 mg ONCE ONE Administration Morphine Sulfate 4 mg 03/11/22 23:42 03/11/22 23:54 Morphine 4mg/Ml Syringe
[2022-03-11 23:45] LABS: Troponin I < 0.01 ng/ml (0.00-0.034)
[2022-03-11 23:55] LABS: Chloride 100 mmol/L (98-107); Potassium 3.8 mmoL/L (3.5-5.1); Sodium 136 mmol/L (136-145)
[2022-03-11 23:58] LABS: Alanine Aminotransferase 15 U/L (12-78); Albumin Level 4.6 g/dl (3.5-5.0); Albumin/Globulin Ratio 1.3 (1.1-1.8); Alkaline Phosphatase 138 U/L (38-126); Anion Gap 9.8 mEq/L (5-15); Aspartate Amino Transferase 39 U/L (14-36); Bilirubin,Total 0.4 mg/dl (0.2-1.3); Blood Urea Nitrogen 14 mg/dl (7-17); Carbon Dioxide 30 mmol/L (22.0-30.0); Creatinine Clearance Estimated 91 mL/min (50-200); Estimated Glomerular Filt Rate 87 ml/min (>60); GFR (African American) 105 ML/MIN (>60); Globulin 3.6 g/dL (1.3-3.2); Total Protein,Serum 8.2 g/dl (6.3-8.2)
[2022-03-11 23:59] LABS: Calcium 9.5 mg/dl (8.4-10.2); Glucose 149 mg/dl (74-100)
[2022-03-12] VITALS (7 sets, daily range): BP systolic 101–125; BP diastolic 64–75; PULSE 53–88; RESP 19; TEMP 37; O2SAT 95–98
--- NOTE | 2022-03-12 | XR_ITS ---
PROCEDURE INFORMATION: Exam: XR Chest Exam date and time: 03/12/2022 12:05 AM Age: 56 years old Clinical indication: Pain; Other: Abdominal; Additional info: Abd pain TECHNIQUE: Imaging protocol: Radiologic exam of the chest. Views: 2 views. COMPARISON: CR XR CHEST 2V 02/09/2022 10:30 AM FINDINGS: Lungs: Calcified granuloma within the right costophrenic angle region. Pleural spaces: Unremarkable. No pleural effusion. No pneumothorax. Heart/Mediastinum: Calcified right mediastinal lymph node, compatible with prior granulomatous disease. Bones/joints: No acute abnormality. IMPRESSION: No acute cardiopulmonary abnormality.
--- NOTE | 2022-03-12 | CT_ITS ---
PROCEDURE INFORMATION: Exam: CT Abdomen And Pelvis With Contrast Exam date and time: 03/12/2022 12:14 AM Age: 56 years old Clinical indication: Abdominal pain; Additional info: Abd pain TECHNIQUE: Imaging protocol: Computed tomography of the abdomen and pelvis with contrast. Radiation optimization: All CT scans at this facility use at least one of these dose optimization techniques: automated exposure control; mA and/or kV adjustment per patient size (includes targeted exams where dose is matched to clinical indication); or iterative reconstruction. Contrast material: ISOVUE; Contrast volume: 75 ml; Contrast route: IV; COMPARISON: CR XR CHEST 2V 03/12/2022 12:05 AM FINDINGS: Lungs: Calcified granuloma within the periphery of the right lower lobe. Diaphragm: Small-sized hiatal hernia. Liver: Simple left hepatic lobe cysts. Gallbladder and bile ducts: Cholelithiasis. Pancreas: Normal. Spleen: Splenic calcifications, compatible with prior granulomatous disease. Adrenal glands: Normal. No mass. Kidneys and ureters: Nonobstructive left nephrolithiasis. Simple right upper pole renal cyst, for which no further evaluation necessary. Stomach and bowel: Moderate amount of stool throughout the colon, suggesting constipation. No obstruction. Appendix: Appendix normal. Intraperitoneal space: Unremarkable. No free air. No significant fluid collection. Vasculature: Unremarkable. No abdominal aortic aneurysm. Lymph nodes: Unremarkable. No enlarged lymph nodes. Urinary bladder: Unremarkable as visualized. Reproductive: Unremarkable as visualized. Bones/joints: No acute abnormality. Soft tissues: Normal. IMPRESSION: Moderate amount of stool throughout the colon, suggesting constipation. No obstruction.
--- NOTE | 2022-03-12 00:11 | PC.NURSE ---
Pt gone to RAD
--- NOTE | 2022-03-12 00:23 | PC.NURSE ---
Pt back from RAD
[2022-03-12 02:12] LABS: Troponin I < 0.01 ng/ml (0.00-0.034)
== END 2022-03-12 03:01 | disposition home or self-care (01) ==
PROVIDERS: Emergency Provider Emergency Medicine; PCP Internal Medicine
DX: K80.20 Calculus of gallbladder without cholecystitis without obstruction (principal); Z79.899 Other long term (current) drug therapy; E11.9 Type 2 diabetes mellitus without complications; I10 Essential (primary) hypertension; M19.90 Unspecified osteoarthritis, unspecified site; E03.9 Hypothyroidism, unspecified; Z85.828 Personal history of other malignant neoplasm of skin
CPT/HCPCS: 71046; 74177; 80053; 81001; 82150; 83690; 84484; 85025; 93005; 96365; 96375; 99284; J2405; Q9967

== ENCOUNTER → 2022-03-24 07:18 | Outpatient (CLI) | payer BC, SELFPAY ==
--- NOTE | 2022-03-24 07:18 | US_ITS ---
FINAL REPORT CLINICAL HISTORY: Right upper quad pain FINDINGS: Sonographic images of the right upper quadrant were obtained. The pancreas is partially obscured. There is a 10 mm left hepatic lobe cyst. There are small gallstones within the gallbladder. There is no evidence of biliary ductal dilatation.The common duct measures 2 mm. The right kidney measures 9 cm. There is a 10 mm cyst in the upper pole. IMPRESSION: 10 mm left hepatic lobe cyst. 10 mm right renal cyst. Reviewed, Interpreted and Dictated by Benjamin Cortez III, MD Transcribed by Delia Harris Authenticated and [facility]
== END ==
PROVIDERS: PCP Internal Medicine; Visit Provider Surgery
DX: R10.11 Right upper quadrant pain (principal)
CPT/HCPCS: 76705

== ENCOUNTER 2022-04-02 08:02 | Emergency (ER) | payer BC, SELFPAY ==
--- NOTE | 2022-04-02 08:18 | HMH.EDUTC ---
[facility] Disposition Clinical Impression: Viral syndrome, Exposure to COVID-19 virus Disposition: Home, Self-Care Condition on Discharge: Good Instructions: DI for Viral Syndrome, DI for COVID-19 (Suspected or Confirmed ), Preventing the Spread of Coronavirus Discharge Instructions Additional Instructions: Drink plenty of fluids. Take tylenol for pain or fever. Return if you begin to have difficulty breathing. Follow up with your regular doctor. GO TO THE ER FOR ANY WORSENING SYMPTOMS Quarantine until you know the results of your covid-19 test. If it is positive, the health department should call you and give you further instructions about your length of Quarantine and other things. Notify your school or workplace of your results and follow their instructions regarding return to work/school. Prescriptions: Ondansetron [Zofran 4mg ODT] 4 mg PO Q8HP PRN #12 tab PRN Reason: Nausea Transmission Status: Received by [facility] Benzonatate [Benzonatate 100mg cap] 100 mg PO TIDP PRN #30 cap PRN Reason: Cough Transmission Status: Received by [facility] Referrals: Fredrick Oseguera MD [Primary Care Provider] - Time of Disposition: 08:31 Medical Decision Making - Medical Records Medical records reviewed: No: I reviewed the patient's medical records. - Navi Inquiry Pt receiving controlled substance: No Vital Signs: 04/02/22 08:22 04/02/22 08:36 Temperature 98.9 F 98.9 F Temperature Source Oral Pulse Rate 68 Pulse Rate [Left] 68 Respiratory Rate 17 17 Blood Pressure 140/79 Blood Pressure [Right Arm] 140/79 Blood Pressure Mean [Right Arm] 99 02 Sat by Pulse Oximetry 95 - Lab Data Lab results reviewed: Yes: I reviewed the patient's lab results. [facility] HPI - General Stated complaint: covid exposure, sore throat, h/a, congestion Time Seen by Provider: 04/02/22 08:18 - History of Present Illness Provider Complaint: She was exposed to covid-19 earlier this week. For the past 1 day she has had sinus drainage, body aches and chills. - Related Data Home Medications Medication Instructions Recorded Confirmed levothyroxine 75 mcg capsule 75 mcg PO DAILY 05/08/18 04/02/22 Leflunomide [Arava] 20 mg PO DAILY 08/23/19 03/30/22 calcium carbonate 500 mg calcium 600 mg PO BID tab 12/29/20 04/02/22 (1,250 mg) tablet lisinopril 5 mg tablet 5 mg PO DAILY tab 07/14/21 04/02/22 Previous Rx's Medication Instructions Recorded carbamazepine 100 mg chewable See Rx Instructions PO BID #120 tab 11/17/21 tablet ondansetron HCl 4 mg tablet 4 mg PO Q8H PRN #30 tab 11/17/21 Benzonatate [Benzonatate 100mg 100 mg PO TIDP PRN #30 cap 04/02/22 cap] Ondansetron [Zofran 4mg ODT] 4 mg PO Q8HP PRN #12 tab 04/02/22 Allergies Allergy/AdvReac Type Severity Reaction Status Date / Time No Known Allergies Allergy Verified 04/02/22 08:27 [facility] History - Hepatitis A Screen Attestation statement:: This patient has been screened for Hepatitis A risk factors. I have reviewed the patient's past medical history: Yes Medical History: Reports:: Cancer, Diabetes Mellitus Type 2, Hypertension Denies:: Diabetes Mellitus Type 1, Internal Pacemaker, Lung Disease, MRSA, Seizures Other Medical History: Reports: Arthritis, Hypothyroidism, Thyroid Disease, Other Other Surgeries: Yes: Colonoscopy, , Thyroidectomy, Other. No: Pacemaker Amputation: No Fractures: No Comment: laser surgery for skin cancer - Social History Smoking Status: Never smoker Alcohol Intake: never Alcohol Intake Frequency:: other Substance Use Type: denies use Occupational Status: employed Housing: house Household Members: spouse Family Hx:: Hypertension, Diabetes, Cancer Comment: # Breech. # ROS Obtained: Yes All systems reviewed & no additional complaints - Constitutional Constitutional: Reports as per HPI - Eyes Eyes: Denies
[2022-04-02 08:22] VITALS: BP 140/79; PULSE 68; RESP 17; TEMP 37.2; O2SAT 95
[2022-04-02 08:36] VITALS: BP 140/79; PULSE 68; RESP 17; TEMP 37.2
== END 2022-04-02 08:36 | disposition home or self-care (01) ==
PROVIDERS: Emergency Provider Nurse Practitioner Family; PCP Internal Medicine
DX: U07.1 COVID-19 (principal)
CPT/HCPCS: 99212; C9803; G0463; U0003; U0005

== ENCOUNTER → 2022-04-15 07:14 | Outpatient (CLI) | payer BC, SELFPAY ==
--- NOTE | 2022-04-15 | CA_ITS ---
APPROVED REPORT Exam: Exercise Treadmill Technologist: Keiko Boyd, Ht: 4 ft 7 in Wt: 141 lbs BSA: 1.51 m2 HR: 67 bpm BP: 185/89 mmHg Rhythm: NSR, normal Medical History Medical History: HTN, Diabetes Medications: Lisinopril,,,,, Levothyroxine,,,,, Calcium,,,,, Carbamazepine,,,,, ONdanESETRAN,,,,, Leflunomide,,,,, Cardiac Risk Factors: HTN, Diabetes (non-insulin) Stress Test Details Test: Ria HR Resting HR: 83 bpm Max Heart Rate (APMHR): 165.651898 bpm Max HR Achieved: 167 bpm Target HR (85% APMHR): 140.915832 bpm % of APMHR: 101.21 Recovery HR: 154 bpm BP Resting BP: 178/88 mmHg Max BP: 198/94 mmHg Recovery BP: 198.0/94.0 mmHg ECG Resting ECG: NSR, normal Clinical Exercise duration: 06:50 min Highest Stage Achieved: Exercise capacity: 10.1 METs Stress ECG Conclusion During ria protocol pt exercised total of 6:50 into stage 3. No CP noted. No arrhtyhmias noted. 1.5mm horizontal ST depression inferiorly and 1mm laterally. Abn GXT. Myoview images reported separately. Test Summary RECOVERY 06:00 0.0 0.0 111 . 173/ 89 . . REST . . . . . . . Standing REST 08:33 0.0 0.0 83 . 178/ 88 . . Stage 1 01:00 10.0 1.7 110 . . . . Stage 1 02:00 10.0 1.7 133 . . . . Stage 1 03:00 10.0 1.7 139 . 190/ 96 . . Stage 2 01:00 12.0 2.5 152 . . . . Stage 2 02:00 12.0 2.5 158 . . . . Stage 2 03:00 12.0 2.5 160 . . . . Stage 3 00:50 14.0 3.4 167 . . . Stop exercise at 06:50 RECOVERY 01:00 0.0 0.0 149 . . . . RECOVERY 02:00 0.0 0.0 130 . 198/ 94 . . RECOVERY 03:00 0.0 0.0 116 . 185/ 91 . . RECOVERY 04:00 0.0 0.0 106 . 177/ 93 . . RECOVERY 05:00 0.0 0.0 99 . 177/ 93 . . RECOVERY 06:00 0.0 0.0 111 . 173/ 89 . . RECOVERY 07:00 0.0 0.0 97 . 165/ 90 . . RECOVERY 07:18 0.0 0.0 79 . 165/ 90 . . Electronically signed by : Daron Gutierrez MD 04/16/2022 13:04:37
--- NOTE | 2022-04-15 07:15 | NM_ITS ---
APPROVED REPORT Exam: Nuclear Stress Test Indication: short of breath..fatigue Patient Location: Outpatient Stress Tech: Keiko MCCARTNEY Tech:Brittany Powell CARLAKelsey RT(R)(N) Ht: 5 ft 5 in Wt: 143 lbs Bra Size: 34b HR: 83 bpm BP: 178/88 mmHg BSA: 1.72 m2 TID: 1.13 BMI: 23.7 History: short of breath..fatigue Procedure: Patient exercised on Neftali protocol 6:50 minutes and sec, resting heart rate 83 bpm, resting blood pressure 178/88 mmHg, with exercise maximum heart rate achived was 167 bpm which is 101 % of the maximum predicted heart rate and blood pressure was 198/94 mmHg. Test was stopped due to fatigue. Patient denied any complaint of chest pain. Patient has Good exercise capacity, achieved 10.1 METs of workload on treadmill, the blood pressure response to exercise was Adequate. Electrocardiogram Resting electrocardiogram shows sinus rhythm, with exercise there is [address] segment depression noted from the baseline EKG. The EKG portion of the exercise Myoview is positive for ischemia. Cardiac Stress and Resting SPECT Images: Cardiac Stress and Resting SPECT images were obtained using technetium 99m Myoview 31.0 mCi stress and 10.52 mCi at rest. Gated SPECT analysis of segmental wall motion and calculation of the ejection fraction also done. Cardiac stress and rest SPECT images show uniform myocardial activity without segmental perfusion abnormality, computer derived ejection fraction is over 65% with no regional wall motion abnormality, right ventricle is normal size and contractility. Conclusion: 1. The EKG portion of the exercise Myoview is positive for ischemia, patient has good exercise capacity achieved 10.1 METs of workload on treadmill, the blood pressure response to exercise was adequate, there was no exercise-induced chest discomfort. 2. No scintigraphic evidence of reversible ischemia seen, compared to ejection fraction is over 65% with no regional wall motion abnormality, right ventricle is normal size and contractility. 3. Normal exercise Myoview study. Electronically signed by : Daron Gutierrez MD 04/16/2022 13:07:09
== END ==
PROVIDERS: PCP Internal Medicine; Visit Provider Nurse Practitioner Family
DX: Z01.810 Encounter for preprocedural cardiovascular examination (principal); R06.09 Other forms of dyspnea; R07.89 Other chest pain; Z82.49 Family history of ischemic heart disease and other diseases of the circulatory system
CPT/HCPCS: 78452; 93017; A9502

== ENCOUNTER → 2022-06-01 07:34 | Outpatient (CLI) | payer BC, SELFPAY ==
[2022-06-01 07:51] LABS: Basophils # 0.1 K/mm3 (0-0.2); Basophils % 1.7 % (0.1-2.0); Eosinophils # 0.5 K/mm3 (0.0-0.4); Eosinophils % 6.4 % (0.1-12.0); Hematocrit 42.4 % (37.0-47.0); Hemoglobin 13.3 g/dL (12.2-16.2); Lymphocytes # 2.3 K/mm3 (0.7-4.5); Lymphocytes % 29.7 % (10-50); Mean Corpuscular HGB Conc 31.4 g/dL (31.8-35.4); Mean Corpuscular Hemoglobin 28.5 pg (27.0-31.2); Mean Corpuscular Volume 90.7 fl (81-99); Mean Platelet Volume 9.3 fl (7.4-10.4); Monocytes # 0.5 K/mm3 (0.1-1.0); Monocytes % 6.5 % (1.7-9.3); Neutrophils # 4.3 K/mm3 (1.8-7.8); Neutrophils % 55.7 % (37.0-80.0); Platelet Count 282 K/mm3 (142-424); Red Blood Count 4.67 M/mm3 (4.20-5.40); White Blood Count 7.7 K/mm3 (4.8-10.8)
[2022-06-01 08:35] LABS: Chloride 102 mmol/L (98-107); Potassium 4.2 mmoL/L (3.5-5.1); Sodium 140 mmol/L (136-145)
[2022-06-01 08:37] LABS: Blood Urea Nitrogen 12 mg/dl (7-17); Erythrocyte Sedimentation Rate 15 mm/hr (0-30); Estimated Glomerular Filt Rate 74 ml/min (>60); GFR (African American) 90 ML/MIN (>60)
[2022-06-01 08:38] LABS: Alanine Aminotransferase 15 U/L (12-78); Albumin Level 4.1 g/dl (3.5-5.0); Albumin/Globulin Ratio 1.5 (1.1-1.8); Alkaline Phosphatase 129 U/L (38-126); Anion Gap 10.2 mEq/L (5-15); Aspartate Amino Transferase 36 U/L (14-36); Calcium 8.6 mg/dl (8.4-10.2); Carbon Dioxide 32 mmol/L (22.0-30.0); Globulin 2.8 g/dL (1.3-3.2); Glucose 100 mg/dl (74-100); Total Protein,Serum 6.9 g/dl (6.3-8.2)
[2022-06-01 08:41] LABS: Bilirubin,Total 0.1 mg/dl (0.2-1.3)
[2022-06-01 08:43] LABS: C-Reactive Protein 2.4 mg/L (0-4)
== END ==
PROVIDERS: PCP Internal Medicine; Visit Provider Nurse Practitioner Family
DX: M05.9 Rheumatoid arthritis with rheumatoid factor, unspecified (principal); Z51.81 Encounter for therapeutic drug level monitoring
CPT/HCPCS: 36415; 80053; 85025; 85651; 86140

== ENCOUNTER → 2022-06-22 09:55 | Outpatient (CLI) | payer BC, SELFPAY ==
[2022-06-22 13:39] LABS: Ferritin 216 ng/ml (11.1-264)
== END ==
PROVIDERS: PCP Internal Medicine; Visit Provider Nurse Practitioner Family
DX: E83.10 Disorder of iron metabolism, unspecified (principal); G25.81 Restless legs syndrome
CPT/HCPCS: 36415; 82728

== ENCOUNTER 2022-08-24 23:34 | Emergency (ER) | payer BC, SELFPAY ==
[2022-08-24 23:36] VITALS: BP 169/89; PULSE 80; RESP 19; TEMP 36.7; O2SAT 98; BMI 23.3
[2022-08-25] VITALS: BP 156/83; PULSE 78; O2SAT 93
--- NOTE | 2022-08-25 00:18 | HMH.EDEAR ---
Discharge Plan Disposition Patient Disposition: Home, Self-Care Prescriptions Prescriptions: New cephalexin [cephalexin] 500 mg capsule 500 mg PO BID Qty: 14 0RF No Action levothyroxine 75 mcg capsule 75 mcg PO DAILY calcium carbonate [Calcium 500] 500 mg calcium (1,250 mg) tablet 600 mg PO BID carbamazepine 100 mg tablet,chewable See Rx Instructions PO BID Qty: 120 2RF Rx Instructions: Start with 100 mg p.o. twice daily. If pain persist after at least 72 hours, may increase to 200 mg or 2 tablets p.o. twice daily. lisinopril 5 mg tablet 5 mg PO DAILY Linzess 145 mcg capsule 145 mcg PO PRN Horizant 600 mg tablet extended release 600 mg PO HS Qty: 30 1RF Rx Instructions: administer daily at approximately 5 PM with food/evening meal leflunomide 20 MG tablet 20 mg PO DAILY ondansetron 4 MG tablet,disintegrating 4 mg PO Q8HP PRN (Reason: Nausea) Qty: 12 0RF Referrals Follow up/Referrals: Fredrick Oseguera MD [Primary Care Provider] - See instructions Clinical Impressions Clinical Impression: Tympanic membrane perforation Instructions Patient Instructions: DI for Tympanic Membrane Perforation-Adult Discharge ED Provider: Hector Gonsalez Ear HPI General Chief complaint: Ear Stated complaint: Left ear bleeding Time Seen by Provider: 08/25/22 00:18 Mode of Arrival: Family Vehicle Source of Information: Patient and Medical Record Limitations: No Limitations Description of Symptoms (Recalled from ER Triage Doc. by RN): Pt c/o L ear bleeding and pain. States she has been battling a virus and saw pcp Dr. Oseguera on Tuesday, she was negative for flu or covid. Pt states she has been feeling a lot of pressure of her left ear and then tonight felt a pressure pop and the pain increased and blood coming from L ear. She took 400mg Motrin [employer]. History of Present Illness HPI Narrative: acute lt ear bleeding - has had congestion and pressure and pain and bleeding from lt ear MD Complaint: ear pain and ear discharge Location: left ear Duration: constant Severity: moderate Context: recent illness Discharge from ear: yes - bloody Treatment prior to arrival: none Related Data Home Medications Medication Instructions Recorded Confirmed levothyroxine 75 mcg capsule 75 mcg PO DAILY THYROID 05/08/18 06/22/22 leflunomide 20 mg tablet 20 mg PO DAILY R.A. 08/23/19 06/22/22 calcium carbonate 500 mg calcium 600 mg PO BID Supplement 12/29/20 06/22/22 (1,250 mg) tablet (Calcium 500) lisinopril 5 mg tablet 5 mg PO DAILY High blood pressure 07/14/21 06/22/22 linaclotide 145 mcg capsule 145 mcg PO PRN 06/22/22 06/22/22 (Linzess) Previous Rx's Medication Instructions Recorded carbamazepine 100 mg chewable See Rx Instructions PO BID 11/17/21 tablet trigeminal neuralgia #120 tabs ondansetron 4 mg disintegrating 4 mg PO Q8HP PRN Nausea #12 tabs 04/02/22 tablet gabapentin enacarbil 600 mg 600 mg PO HS RLS #30 tabs 07/06/22 tablet,extended release (Horizant ER) cephalexin 500 mg capsule 500 mg PO BID #14 caps 08/25/22 Allergies Allergy/AdvReac Type Severity Reaction Status Date / Time No Known Allergies Allergy Verified 06/22/22 09:07 [facility] Disclaimer: The information contained in this section may have been updated after the patient was seen, as this information can be updated by other users. Medical History (Updated 08/25/22 @ 00:51 by Hector Gonsalez MD) Chest pain Dyspnea Encounter for pre-operative cardiovascular clearance Family history of heart disease Surgical History (Updated 06/22/22 @ 09:10 by Carlene Alberts) H/O partial thyroidectomy H/O: Social History Smoking Status: Never smoker second hand exposure: No alcohol intake: never substance use type: denies use current occupational status: employed Travel in the last 8 weeks: None household members: spouse housing: house current occup
[2022-08-25 00:36] LABS: Microscopic, Urine URINE MICROSCOPIC (MICROSCOPIC)
[2022-08-25 00:39] LABS: Appearance,Urine CLEAR (Clear); Bilirubin,Urine Negative (Negative); Blood, Urine 2+ (Negative); Color,Urine YELLOW (Yellow); Glucose,Urine (UA) Negative (Negative); Ketones,Urine Negative (Negative); Leukocyte Esterase,Urine 2+ (Negative); Nitrate,Urine POSITIVE (Negative); PH,Urine 5.5 (5.0-8.5); Protein,Urine TRACE (Negative); Specific Gravity, Urine >= 1.030 (1.005-1.030); Urobilinogen,Urine 0.2 EU/dl (0.2)
[2022-08-25 01:10] LABS: Bacteria,Urine 2+ /lpf; Mucus,Urine 1+ /lpf
[2022-08-25 01:11] VITALS: BP 155/72; PULSE 80; RESP 18; TEMP 36.6; O2SAT 99
== END 2022-08-25 01:23 | disposition home or self-care (01) ==
PROVIDERS: Emergency Provider Emergency Medicine; PCP Internal Medicine
DX: H72.92 Unspecified perforation of tympanic membrane, left ear (principal); R07.9 Chest pain, unspecified; R11.0 Nausea; E89.0 Postprocedural hypothyroidism; Z79.51 Long term (current) use of inhaled steroids; Z79.899 Other long term (current) drug therapy; Z82.49 Family history of ischemic heart disease and other diseases of the circulatory system
CPT/HCPCS: 81001; 87086; 87088; 87186; 99283

== ENCOUNTER → 2022-10-05 08:14 | Outpatient (CLI) | payer BC, SELFPAY ==
[2022-10-05 08:34] LABS: Basophils # 0.1 K/mm3 (0-0.2); Basophils % 1.2 % (0.1-2.0); Eosinophils # 0.3 K/mm3 (0.0-0.4); Eosinophils % 3.9 % (0.1-12.0); Hematocrit 41.1 % (37.0-47.0); Hemoglobin 13.5 g/dL (12.2-16.2); Lymphocytes # 2.3 K/mm3 (0.7-4.5); Lymphocytes % 35.2 % (10-50); Mean Corpuscular Hemoglobin 28.3 pg (27.0-31.2); Mean Corpuscular Volume 85.7 fl (81-99); Mean Platelet Volume 8.8 fl (7.4-10.4); Monocytes # 0.4 K/mm3 (0.1-1.0); Monocytes % 6.6 % (1.7-9.3); Neutrophils # 3.5 K/mm3 (1.8-7.8); Platelet Count 298 K/mm3 (142-424); Red Blood Count 4.79 M/mm3 (4.20-5.40); Red Cell Distribution Width 13.4 % (11.5-17.5); White Blood Count 6.6 K/mm3 (4.8-10.8)
[2022-10-05 08:57] LABS: Chloride 104 mmol/L (98-107); Sodium 139 mmol/L (136-145)
[2022-10-05 08:59] LABS: Alanine Aminotransferase 15 U/L (12-78); Aspartate Amino Transferase 33 U/L (14-36); Blood Urea Nitrogen 16 mg/dl (7-17); Estimated Glomerular Filt Rate 74 ml/min (>60); GFR (African American) 90 ML/MIN (>60)
[2022-10-05 09:00] LABS: Albumin Level 4.2 g/dl (3.5-5.0); Albumin/Globulin Ratio 1.4 (1.1-1.8); Alkaline Phosphatase 108 U/L (38-126); Bilirubin,Total 0.5 mg/dl (0.2-1.3); Calcium 8.9 mg/dl (8.4-10.2); Carbon Dioxide 29 mmol/L (22.0-30.0); Glucose 106 mg/dl (74-100); Total Protein,Serum 7.2 g/dl (6.3-8.2)
[2022-10-05 09:06] LABS: C-Reactive Protein 1.4 mg/L (0-4)
[2022-10-05 09:37] LABS: Erythrocyte Sedimentation Rate 10 mm/hr (0-30)
== END ==
PROVIDERS: PCP Internal Medicine; Visit Provider Nurse Practitioner Family
DX: M05.9 Rheumatoid arthritis with rheumatoid factor, unspecified (principal); Z51.81 Encounter for therapeutic drug level monitoring
CPT/HCPCS: 36415; 80053; 85025; 85651; 86140

== ENCOUNTER → 2022-12-13 10:14 | Outpatient (CLI) | payer BC, SELFPAY ==
[2022-12-13 10:54] LABS: Hemoglobin A1C 5.3 % (4.0-6.0)
[2022-12-13 11:25] LABS: Alanine Aminotransferase 14 U/L (12-78); Albumin Level 4.6 g/dl (3.5-5.0); Albumin/Globulin Ratio 1.5 (1.1-1.8); Alkaline Phosphatase 130 U/L (38-126); Anion Gap 10.3 mEq/L (5-15); Aspartate Amino Transferase 32 U/L (14-36); Bilirubin,Total 0.4 mg/dl (0.2-1.3); Blood Urea Nitrogen 18 mg/dl (7-17); Calcium 9.2 mg/dl (8.4-10.2); Carbon Dioxide 31 mmol/L (22.0-30.0); Chloride 99 mmol/L (98-107); Chol/HDL Ratio 4.6 (1-3.5); Cholesterol 199 mg/dl (140-200); Estimated Glomerular Filt Rate 74 ml/min (>60); GFR (African American) 90 ML/MIN (>60); Glucose 94 mg/dl (74-100); HDL Cholesterol 43 mg/dl (40-60); Potassium 4.3 mmoL/L (3.5-5.1); Sodium 136 mmol/L (136-145); Total Protein,Serum 7.6 g/dl (6.3-8.2); Triglycerides 145 mg/dl (30-150); VLDL Cholesterol 29 mg/dL (0-40)
[2022-12-13 11:35] LABS: Direct LDL Cholesterol 123.91 mg/dL (100-129)
[2022-12-13 11:54] LABS: Thyroid Stimulating Hormone 0.96 uIU/mL (0.465-4.68)
== END ==
PROVIDERS: PCP Internal Medicine; Visit Provider Internal Medicine
DX: E03.9 Hypothyroidism, unspecified (principal); I10 Essential (primary) hypertension; E78.5 Hyperlipidemia, unspecified; G60.9 Hereditary and idiopathic neuropathy, unspecified; Z85.3 Personal history of malignant neoplasm of breast; Z79.899 Other long term (current) drug therapy
CPT/HCPCS: 80053; 80061; 83036; 84443

== ENCOUNTER → 2023-01-03 07:25 | Outpatient (CLI) | payer BC, SELFPAY ==
[2023-01-03 07:39] LABS: Basophils # 0.1 K/mm3 (0-0.2); Basophils % 1.3 % (0.1-2.0); Eosinophils # 0.3 K/mm3 (0.0-0.4); Eosinophils % 5.6 % (0.1-12.0); Hematocrit 44.4 % (37.0-47.0); Hemoglobin 14.3 g/dL (12.2-16.2); Lymphocytes # 2.4 K/mm3 (0.7-4.5); Lymphocytes % 39.4 % (10-50); Mean Corpuscular HGB Conc 32.3 g/dL (31.8-35.4); Mean Corpuscular Volume 86.5 fl (81-99); Mean Platelet Volume 9.2 fl (7.4-10.4); Monocytes # 0.5 K/mm3 (0.1-1.0); Monocytes % 8.3 % (1.7-9.3); Neutrophils # 2.8 K/mm3 (1.8-7.8); Neutrophils % 45.5 % (37.0-80.0); Platelet Count 253 K/mm3 (142-424); Red Blood Count 5.13 M/mm3 (4.20-5.40); Red Cell Distribution Width 13.4 % (11.5-17.5); White Blood Count 6.2 K/mm3 (4.8-10.8)
[2023-01-03 08:02] LABS: Erythrocyte Sedimentation Rate 12 mm/hr (0-30)
[2023-01-03 08:47] LABS: Chloride 100 mmol/L (98-107); Potassium 4.2 mmoL/L (3.5-5.1); Sodium 138 mmol/L (136-145)
[2023-01-03 08:50] LABS: Alanine Aminotransferase 14 U/L (12-78); Albumin Level 4.3 g/dl (3.5-5.0); Albumin/Globulin Ratio 1.4 (1.1-1.8); Alkaline Phosphatase 111 U/L (38-126); Aspartate Amino Transferase 29 U/L (14-36); Bilirubin,Total 0.4 mg/dl (0.2-1.3); Blood Urea Nitrogen 15 mg/dl (7-17); Carbon Dioxide 31 mmol/L (22.0-30.0); Estimated Glomerular Filt Rate 74 ml/min (>60); GFR (African American) 90 ML/MIN (>60); Total Protein,Serum 7.3 g/dl (6.3-8.2)
[2023-01-03 08:51] LABS: Glucose 100 mg/dl (74-100)
[2023-01-03 08:53] LABS: Anion Gap 11.2 mEq/L (5-15)
== END ==
PROVIDERS: PCP Internal Medicine; Visit Provider Internal Medicine
DX: M05.9 Rheumatoid arthritis with rheumatoid factor, unspecified (principal); M15.9 Polyosteoarthritis, unspecified; Z51.81 Encounter for therapeutic drug level monitoring
CPT/HCPCS: 36415; 80053; 85025; 85651; 86140

== ENCOUNTER → 2023-01-27 23:21 | Outpatient (CLI) | payer BC, SELFPAY | PROVIDERS: PCP Student in an Organized Health Care Education/Training Program; Visit Provider Student in an Organized Health Care Education/Training Program | DX: R51.9 Headache, unspecified (principal); J02.9 Acute pharyngitis, unspecified; R05.9 Cough, unspecified; R10.9 Unspecified abdominal pain | CPT/HCPCS: C9803; U0003; U0005 ==

== ENCOUNTER → 2023-04-04 14:47 | Outpatient (CLI) | payer BC, SELFPAY ==
--- NOTE | 2023-04-04 14:51 | XR_ITS ---
FINAL REPORT CLINICAL HISTORY: RIGHT KNEE PAIN NO INJURY COMPARISON: None FINDINGS: AP, lateral and oblique views of the right knee were obtained. There is no prior exam for comparison. There is no acute osseous abnormality of the right knee. The joint space is preserved. The soft tissues are normal. There is no joint effusion. IMPRESSION: No acute osseous abnormality of the right knee. Reviewed, Interpreted and Dictated by Chela Pereira MD Transcribed by Tiera Newby Authenticated and [facility]
== END ==
PROVIDERS: PCP Internal Medicine; Visit Provider Internal Medicine
DX: M25.561 Pain in right knee (principal)
CPT/HCPCS: 73562

== ENCOUNTER → 2023-05-10 08:19 | Outpatient (CLI) | payer BC, SELFPAY ==
[2023-05-10 08:55] LABS: Basophils # 0.1 K/mm3 (0-0.2); Basophils % 0.8 % (0.1-2.0); Eosinophils # 0.2 K/mm3 (0.0-0.4); Eosinophils % 2.9 % (0.1-12.0); Hematocrit 37.9 % (37.0-47.0); Hemoglobin 12.9 g/dL (12.2-16.2); Lymphocytes # 2.3 K/mm3 (0.7-4.5); Lymphocytes % 37.1 % (10-50); Mean Corpuscular HGB Conc 34.1 g/dL (31.8-35.4); Mean Corpuscular Hemoglobin 29.3 pg (27.0-31.2); Mean Corpuscular Volume 85.8 fl (81-99); Mean Platelet Volume 9.2 fl (7.4-10.4); Monocytes # 0.5 K/mm3 (0.1-1.0); Monocytes % 8.9 % (1.7-9.3); Neutrophils # 3.1 K/mm3 (1.8-7.8); Neutrophils % 50.4 % (37.0-80.0); Platelet Count 258 K/mm3 (142-424); Red Blood Count 4.42 M/mm3 (4.20-5.40); Red Cell Distribution Width 13.1 % (11.5-17.5); White Blood Count 6.1 K/mm3 (4.8-10.8)
[2023-05-10 09:26] LABS: Erythrocyte Sedimentation Rate 17 mm/hr (0-30)
[2023-05-10 09:27] LABS: Chloride 103 mmol/L (98-107); Potassium 4.1 mmoL/L (3.5-5.1); Sodium 140 mmol/L (136-145)
[2023-05-10 09:29] LABS: Alanine Aminotransferase 17 U/L (12-78); Aspartate Amino Transferase 30 U/L (14-36); Blood Urea Nitrogen 15 mg/dl (7-17); Estimated Glomerular Filt Rate 74 ml/min (>60); GFR (African American) 90 ML/MIN (>60)
[2023-05-10 09:30] LABS: Albumin Level 3.9 g/dl (3.5-5.0); Albumin/Globulin Ratio 1.3 (1.1-1.8); Alkaline Phosphatase 127 U/L (38-126); Anion Gap 13.1 mEq/L (5-15); Bilirubin,Total 0.5 mg/dl (0.2-1.3); Calcium 9.4 mg/dl (8.4-10.2); Carbon Dioxide 28 mmol/L (22.0-30.0); Globulin 2.9 g/dL (1.3-3.2); Glucose 103 mg/dl (74-100); Total Protein,Serum 6.8 g/dl (6.3-8.2)
[2023-05-10 09:36] LABS: C-Reactive Protein 7.3 mg/L (0-4)
== END ==
PROVIDERS: PCP Internal Medicine; Visit Provider Nurse Practitioner Family
DX: M05.9 Rheumatoid arthritis with rheumatoid factor, unspecified (principal); Z51.81 Encounter for therapeutic drug level monitoring
CPT/HCPCS: 36415; 80053; 85025; 85651; 86140

== ENCOUNTER → 2023-08-29 07:30 | Outpatient (CLI) | payer BC, SELFPAY ==
[2023-08-29 08:21] LABS: Basophils # 0.1 K/mm3 (0-0.2); Eosinophils # 0.3 K/mm3 (0.0-0.4); Eosinophils % 3.5 % (0.1-12.0); Hematocrit 45.7 % (37.0-47.0); Hemoglobin 15.1 g/dL (12.2-16.2); Lymphocytes # 2.3 K/mm3 (0.7-4.5); Lymphocytes % 32.8 % (10-50); Mean Corpuscular Hemoglobin 29.1 pg (27.0-31.2); Mean Corpuscular Volume 88.3 fl (81-99); Mean Platelet Volume 8.6 fl (7.4-10.4); Monocytes # 0.5 K/mm3 (0.1-1.0); Monocytes % 6.7 % (1.7-9.3); Neutrophils # 3.9 K/mm3 (1.8-7.8); Neutrophils % 55.9 % (37.0-80.0); Platelet Count 238 K/mm3 (142-424); Red Blood Count 5.17 M/mm3 (4.20-5.40); Red Cell Distribution Width 13.2 % (11.5-17.5)
[2023-08-29 08:56] LABS: Erythrocyte Sedimentation Rate 5 mm/hr (0-30)
[2023-08-29 09:35] LABS: Chloride 101 mmol/L (98-107); Potassium 4.2 mmoL/L (3.5-5.1); Sodium 139 mmol/L (136-145)
[2023-08-29 09:38] LABS: Alanine Aminotransferase 12 U/L (12-78); Albumin Level 4.6 g/dl (3.5-5.0); Albumin/Globulin Ratio 1.5 (1.1-1.8); Alkaline Phosphatase 122 U/L (38-126); Anion Gap 9.2 mEq/L (5-15); Aspartate Amino Transferase 28 U/L (14-36); Bilirubin,Total 0.3 mg/dl (0.2-1.3); Blood Urea Nitrogen 14 mg/dl (7-17); Calcium 9.1 mg/dl (8.4-10.2); Carbon Dioxide 33 mmol/L (22.0-30.0); Estimated Glomerular Filt Rate 65 ml/min (>60); GFR (African American) 78 ML/MIN (>60); Glucose 99 mg/dl (74-100); Total Protein,Serum 7.6 g/dl (6.3-8.2)
[2023-08-29 09:44] LABS: C-Reactive Protein 2.1 mg/L (0-4)
== END ==
PROVIDERS: PCP Internal Medicine; Visit Provider Nurse Practitioner Family
DX: M05.9 Rheumatoid arthritis with rheumatoid factor, unspecified (principal); M15.9 Polyosteoarthritis, unspecified; Z51.81 Encounter for therapeutic drug level monitoring
CPT/HCPCS: 36415; 80053; 85025; 85651; 86140

== ENCOUNTER 2023-09-30 07:28 | Day surgery (SDC) | payer BC, SELFPAY ==
[2023-09-29 09:21] VITALS: BMI 23.8
[2023-09-30 07:39] VITALS: BP 148/94; PULSE 74; RESP 18; TEMP 36.4; O2SAT 96
[2023-09-30] MEDS: LACTATED RINGERS 1000ML 1,000 ML 25 ML IV (07:45)
--- NOTE | 2023-09-30 08:21 | P.PNANES_ITS ---
[facility] Disclaimer: The information contained in this section may have been updated after the patient was seen, as this information can be updated by other users. Medical History Acute otalgia Blood in left ear canal Chest pain Dyspnea Encounter for pre-operative cardiovascular clearance Family history of heart disease Hx of rheumatoid arthritis Hx of skin cancer, basal cell Perforation of left tympanic membrane Surgical History H/O partial thyroidectomy H/O: Status post surgical removal of malignant neoplasm of skin Family History Other Cancer Coronary artery disease Diabetes Hyperlipidemia Hypertension Social History Smoking Status: Never smoker second hand exposure: No alcohol intake: never substance use type: denies use current occupational status: employed Travel in the last 8 weeks: None household members: spouse housing: house current occupation: [employer] current occupational exposures/hazards: No caffeine: No [facility] Anesthesia Checklist Patient Identification Patient Identification: Arm Band and Verbal (Name & ) Structural Data Admitted From: Home Planned Operative Procedure/s: Colonoscopy Consent for Planned Operative Procedure(s) Verified: Yes NPO Status Verified Time NPO: 00:00 Additional verifications Anesthesia Reactions: No Airway Assessment Mallampati Score:: Class II C-Spine Mobility Assessed: Yes TMJ Mobility Assessed: Yes Dentition: Good Dentition Neurological Assessment Level of Consciousness: Awake Hx Seizures: No Numbness or tingling in extremities: No Anesthesia Plan Anesthesia Risk discussed: Yes Anesthesia Plan: Verified ASA Class: II Anesthesia Type: MAC
--- NOTE | 2023-09-30 08:21 | HMH.SCOPE ---
Procedure: Date: 09/30/23 Patient Date of :: 1965 Procedure Performed:: Total colonoscopy to terminal ileum with polypectomy using cold biopsy forceps Indications:: Patient is a pleasant 58-year-old female who presents for routine screening colonoscopy. She has a family history with her mother being diagnosed with colon cancer in her 60s, approximately age 64. Prior colonoscopy in 2018 revealed no adenomatous polyps. Performing Provider:: Benjamin Braun MD Referring Provider:: Fredrick Oseguera MD Sedation:: MAC sedation Procedure:: Patient history was obtained and appropriate physical examination was performed. Patient's medications and allergies were reviewed. Informed consent was obtained after explaining the benefits, alternatives, and risks of the procedure including, but not limited to, bleeding, perforation, missed lesions, and adverse reaction to anesthesia medications. Patient was transported to endoscopy procedure room. Patient was connected to monitoring devices. Throughout the procedure the patient's blood pressure, pulse, and oxygen saturations were monitored continuously. Patient identification and planned procedure were verified by the staff. Patient was positioned in lateral decubitus position. Digital anorectal exam was performed. Variable stiffness Olympus colonoscope was inserted and advanced under direct visualization to the cecum. Adequacy of the colonic preparation was noted. The colonoscope was advanced a short distance into the terminal ileum. The colonoscope was then slowly withdrawn while carefully examining the color, texture, anatomy, and integrity of the mucosoa circumferentially. Within the rectum retroflexion was performed. Colonoscope was then withdrawn. . Findings:: There was a tiny diminutive rectosigmoid polyp, likely hyperplastic, removed with cold biopsy forceps Minimal internal hemorrhoid cushions with papillae Recommendations:: Likely repeat colonoscopy 5 years Complications:: None immediately apparent Estimated blood obtained (mL): 1 Colonoscopy Component Colonoscopy Component Was a colonoscopy performed during today's procedure?: Yes Recommended follow up colonoscopy of at least 10 years?: No If no, follow up colonoscopy recommended in ___ years?: See above Reason for not recommending >/= 10 yr follow-up interval?: See above
[2023-09-30 08:24] VITALS: O2SAT 96
[2023-09-30 08:55] VITALS: BP 100/53; PULSE 76; RESP 14; TEMP 36.3; O2SAT 94
[2023-09-30 09:05] VITALS: BP 132/71; PULSE 88; RESP 16; O2SAT 95
[2023-09-30 09:15] VITALS: BP 118/84; PULSE 64; RESP 16; O2SAT 98
[2023-09-30 09:25] VITALS: BP 136/81; PULSE 67; RESP 16; TEMP 36.6; O2SAT 98
== END 2023-09-30 09:25 | disposition home or self-care (01) ==
PROVIDERS: PCP Internal Medicine; Visit Provider Surgery
PROC: 0DJD8ZZ Inspection of Lower Intestinal Tract, Via Natural or Artificial Opening Endoscopic (ICD-10-PCS; CPT 45380; principal; 2023-09-30 08:30)
DX: Z12.11 Encounter for screening for malignant neoplasm of colon (principal); Z80.0 Family history of malignant neoplasm of digestive organs; K64.8 Other hemorrhoids; K63.5 Polyp of colon
CPT/HCPCS: 45380; J2704

== ENCOUNTER 2023-12-13 19:21 | Outpatient (CLI) | payer BC, SELFPAY | END 2023-12-13 23:59 | LOC: LAB.DROPOF 19:21 | PROVIDERS: PCP Student in an Organized Health Care Education/Training Program; Visit Provider Student in an Organized Health Care Education/Training Program | DX: J02.9 Acute pharyngitis, unspecified (principal); U07.1 COVID-19 | CPT/HCPCS: 87070; 87635 ==

== ENCOUNTER 2023-12-27 07:34 | Outpatient (CLI) | payer BC, SELFPAY ==
[2023-12-27 07:47] LABS: Basophils # 0.1 K/mm3 (0-0.2); Basophils % 1.9 % (0.1-2.0); Eosinophils # 0.3 K/mm3 (0.0-0.4); Eosinophils % 4.5 % (0.1-12.0); Hematocrit 42.1 % (37.0-47.0); Hemoglobin 13.7 g/dL (12.2-16.2); Lymphocytes # 2.3 K/mm3 (0.7-4.5); Lymphocytes % 35.5 % (10-50); Mean Corpuscular HGB Conc 32.6 g/dL (31.8-35.4); Mean Corpuscular Hemoglobin 29.2 pg (27.0-31.2); Mean Corpuscular Volume 89.6 fl (81-99); Monocytes # 0.4 K/mm3 (0.1-1.0); Monocytes % 6.5 % (1.7-9.3); Neutrophils # 3.3 K/mm3 (1.8-7.8); Neutrophils % 51.5 % (37.0-80.0); Platelet Count 243 K/mm3 (142-424); Red Cell Distribution Width 12.9 % (11.5-17.5); White Blood Count 6.4 K/mm3 (4.8-10.8)
[2023-12-27 09:19] LABS: Alanine Aminotransferase 13 U/L (12-78); Albumin Level 4.3 g/dl (3.5-5.0); Albumin/Globulin Ratio 1.6 (1.1-1.8); Alkaline Phosphatase 111 U/L (38-126); Anion Gap 9.2 mEq/L (5-15); Aspartate Amino Transferase 28 U/L (14-36); Bilirubin,Total 0.4 mg/dl (0.2-1.3); Blood Urea Nitrogen 12 mg/dl (7-17); Calcium 9.6 mg/dl (8.4-10.2); Carbon Dioxide 30 mmol/L (22.0-30.0); Chloride 105 mmol/L (98-107); Estimated Glomerular Filt Rate 86 ml/min (>60); GFR (African American) 104 ML/MIN (>60); Globulin 2.7 g/dL (1.3-3.2); Glucose 102 mg/dl (74-100); Potassium 4.2 mmoL/L (3.5-5.1); Sodium 140 mmol/L (136-145)
[2023-12-27 09:24] LABS: C-Reactive Protein 1.6 mg/L (0-4)
[2023-12-27 09:36] LABS: Erythrocyte Sedimentation Rate 22 mm/hr (0-30)
== END 2023-12-27 23:59 | disposition home or self-care (01) ==
LOC: LAB 07:34
PROVIDERS: PCP Internal Medicine; Visit Provider Internal Medicine
DX: M05.9 Rheumatoid arthritis with rheumatoid factor, unspecified (principal); M15.9 Polyosteoarthritis, unspecified; Z51.81 Encounter for therapeutic drug level monitoring
CPT/HCPCS: 36415; 80053; 85025; 85651; 86140

== ENCOUNTER 2024-04-26 09:19 | Outpatient (CLI) | payer BC, SELFPAY | END 2024-04-26 23:59 | disposition home or self-care (01) | LOC: LAB.DROPOF 04-27 09:20 | PROVIDERS: PCP Student in an Organized Health Care Education/Training Program; Visit Provider Student in an Organized Health Care Education/Training Program | DX: Z20.822 Contact with and (suspected) exposure to COVID-19 (principal) | CPT/HCPCS: 87635 ==

== ENCOUNTER 2024-05-08 07:58 | Outpatient (CLI) | payer BC, SELFPAY ==
[2024-05-08 08:34] LABS: Basophils # 0.1 K/mm3 (0-0.2); Basophils % 1.1 % (0.1-2.0); Eosinophils # 0.3 K/mm3 (0.0-0.4); Hematocrit 45.2 % (37.0-47.0); Hemoglobin 14.4 g/dL (12.2-16.2); Lymphocytes # 2.1 K/mm3 (0.7-4.5); Lymphocytes % 33.8 % (10-50); Mean Corpuscular HGB Conc 31.8 g/dL (31.8-35.4); Mean Corpuscular Volume 91.1 fl (81-99); Mean Platelet Volume 8.6 fl (7.4-10.4); Monocytes # 0.4 K/mm3 (0.1-1.0); Monocytes % 6.7 % (1.7-9.3); Neutrophils # 3.4 K/mm3 (1.8-7.8); Neutrophils % 54.5 % (37.0-80.0); Platelet Count 277 K/mm3 (142-424); Red Blood Count 4.96 M/mm3 (4.20-5.40); Red Cell Distribution Width 13.3 % (11.5-17.5); White Blood Count 6.2 K/mm3 (4.8-10.8)
[2024-05-08 09:26] LABS: Alanine Aminotransferase 14 U/L (12-78); Albumin Level 4.2 g/dl (3.5-5.0); Albumin/Globulin Ratio 1.2 (1.1-1.8); Alkaline Phosphatase 102 U/L (38-126); Anion Gap 7.3 mEq/L (5-15); Aspartate Amino Transferase 31 U/L (14-36); Bilirubin,Total 0.5 mg/dl (0.2-1.3); Blood Urea Nitrogen 16 mg/dl (7-17); Calcium 9.6 mg/dl (8.4-10.2); Carbon Dioxide 32 mmol/L (22.0-30.0); Chloride 104 mmol/L (98-107); Estimated Glomerular Filt Rate 86 ml/min (>60); GFR (African American) 104 ML/MIN (>60); Globulin 3.4 g/dL (1.3-3.2); Glucose 99 mg/dl (74-100); Potassium 4.3 mmoL/L (3.5-5.1); Sodium 139 mmol/L (136-145); Total Protein,Serum 7.6 g/dl (6.3-8.2)
[2024-05-08 09:31] LABS: C-Reactive Protein 1.7 mg/L (0-4)
[2024-05-08 09:34] LABS: Erythrocyte Sedimentation Rate 11 mm/hr (0-30)
== END 2024-05-08 23:59 | disposition home or self-care (01) ==
LOC: LAB 08:00
PROVIDERS: PCP Internal Medicine; Visit Provider Nurse Practitioner Family
DX: Z51.81 Encounter for therapeutic drug level monitoring (principal); M05.9 Rheumatoid arthritis with rheumatoid factor, unspecified; Z79.1 Long term (current) use of non-steroidal anti-inflammatories (NSAID)
CPT/HCPCS: 36415; 80053; 85025; 85651; 86140

== ENCOUNTER 2024-06-13 13:04 | Outpatient (CLI) | payer BC, SELFPAY ==
--- NOTE | 2024-06-13 13:05 | CT_ITS ---
FINAL REPORT TECHNIQUE: Multiple axial CT sections were performed from the foramen magnum to the vertex. Coronal and sagittal reformatted images were also obtained. Precontrast and postcontrast injection images were obtained. This study was performed with technique to keep radiation doses as low as reasonably achievable, (ALARA). Individualized dose reduction techniques using automated exposure control or adjustment of mA and/or kV according to the patient size were employed. CLINICAL HISTORY: New onset headache for 3 weeks COMPARISON: None FINDINGS: The ventricles are normal in size. There is no evidence of hemorrhage. No masses are identified. No extra-axial fluid collection is seen. The sinuses are normal. No osseous abnormality is seen on the bone window images. Postcontrast images demonstrate no abnormal enhancement. IMPRESSION: Unremarkable CT of the head with and without contrast. Reviewed, Interpreted and Dictated by Stewart Tyson MD Transcribed by Elsy King Authenticated and [facility]
[2024-06-13 13:35] LABS: Blood Urea Nitrogen 16 mg/dl (7-17); Estimated Glomerular Filt Rate 74 ml/min (>60); GFR (African American) 89 ML/MIN (>60)
[2024-06-13] MEDS: SODIUM CHLORIDE 0.9% 10ML SYR (RAD ONLY) 10 ML IV (14:07)
[2024-06-13] MEDS: IOPAMIDOL-300 (61%) 100ML VIAL 100 ML IV (14:07)
== END 2024-06-13 23:59 | disposition home or self-care (01) ==
LOC: RAD 13:05
PROVIDERS: PCP Internal Medicine; Visit Provider Internal Medicine
DX: R51.9 Headache, unspecified (principal)
CPT/HCPCS: 36415; 70470; 82565; 84520; Q9967

== ENCOUNTER 2024-07-13 00:31 | Emergency (ER) | payer BC, SELFPAY ==
[2024-07-13] VITALS (9 sets, daily range): BP systolic 117–161; BP diastolic 74–89; PULSE 58–68; RESP 16–18; TEMP 36.6; O2SAT 96–99; BMI 23.4
--- NOTE | 2024-07-13 01:09 | CT_ITS ---
PROCEDURE INFORMATION: Exam: CT Abdomen And Pelvis With Contrast Exam date and time: 07/13/2024 1:45 AM Age: 58 years old Clinical indication: Abdominal pain; Additional info: Ruq abd pain radiating to back HX gallstones TECHNIQUE: Imaging protocol: Computed tomography of the abdomen and pelvis with contrast. Radiation optimization: All CT scans at this facility use at least one of these dose optimization techniques: automated exposure control; mA and/or kV adjustment per patient size (includes targeted exams where dose is matched to clinical indication); or iterative reconstruction. Contrast material: ISOVUE; Contrast volume: 75 ml; Contrast route: IV; COMPARISON: CT ABDOMEN PELVIS W CON 03/12/2022 12:14 AM FINDINGS: Lungs: Calcified granuloma is noted at the lateral right lung base. Liver: Normal. No mass. Stable subcentimeter hypodensity within segment 3 of the liver. Gallbladder and biliary ducts: Cholelithiasis is noted. No gallbladder wall thickening. No biliary ductal dilation. There is a tiny calcification noted in the region of the distal common bile duct axial images 44 and 45 and coronal image 27. Pancreas: There are subtle edematous changes of the pancreas without focal abnormality. No pancreatic ductal dilation. There are inflammatory changes surrounding the pancreas with fluid extending along the anterior pararenal space bilaterally into both paracolic gutters. Spleen: Normal. No splenomegaly. Adrenal glands: Normal. No mass. Kidneys and ureters: No hydronephrosis. There is a tiny left intrarenal calculus. Small cortical cyst upper pole right kidney. Stomach and bowel: Unremarkable. No obstruction. No mucosal thickening. Appendix: No evidence of appendicitis. Intraperitoneal space: Unremarkable. No free air. No significant fluid collection. Vasculature: There are mild calcific atherosclerotic disease without aneurysm or dissection. Lymph nodes: Unremarkable. No enlarged lymph nodes. Urinary bladder: Unremarkable as visualized. Reproductive: Unremarkable as visualized. Bones/joints: Unremarkable. No acute fracture. Soft tissues: Unremarkable. IMPRESSION: Findings consistent with pancreatitis. There are mild inflammatory changes surrounding the gallbladder which are likely secondary to the pancreatitis. No gallbladder wall thickening is noted. There is cholelithiasis present with a tiny calcification in the region of the distal common bile duct. No biliary ductal dilation is evident. Further evaluation with right upper quadrant ultrasound is recommended. COMMENTS: Consistent with the [employer]'s Incidental Findings Committee white paper (J Am Debby Radiol 2018): Any incidental renal lesion less than 1 cm or classified as too small to characterize, or any incidental cystic renal lesion characterized as simple-appearing, is likely benign. No follow-up imaging is recommended for these lesions per consensus recommendations based on imaging criteria.
--- NOTE | 2024-07-13 01:10 | ED_ITS ---
Discharge Plan Disposition Patient Disposition: Xfer Short-Term Hosp Condition: Serious Prescriptions Prescriptions: No Action levothyroxine 75 mcg capsule 75 mcg PO DAILY calcium carbonate [Calcium 500] 500 mg calcium (1,250 mg) tablet 600 mg PO DAILY aspirin [Adult Aspirin Regimen] 81 mg tablet,delayed release (DR/EC) 81 mg PO DAILY carbamazepine 100 mg tablet,chewable 100 mg PO BID 90 Days Qty: 180 1RF ondansetron 4 mg tablet,disintegrating 4 mg PO Q8HP PRN (Reason: Nausea) Qty: 12 2RF lisinopril 5 mg tablet 5 mg PO DAILY Qty: 90 1RF leflunomide [Arava] 20 mg tablet 20 mg PO DAILY Referrals Follow up/Referrals: Fredrick Oseguera MD [Primary Care Provider] - See instructions Clinical Impressions Clinical Impression: Pancreatitis, Acute cholecystitis, Transaminitis Stand Alone Forms Stand Alone Forms: Transfer Record - ED Instructions Patient Instructions: DI for Acute Abdominal Pain Print Language Print Language: Taiwanese Discharge ED Provider: Isidro Mae General Adult HPI General Chief complaint: Abdominal Pain Stated complaint: abd, back pain, vomiting, diarrhea Time Seen by Provider: 07/13/24 00:58 Mode of Arrival: Ambulatory Source of Information: Patient Limitations: No Limitations Description of Symptoms (Recalled from ER Triage Doc. by RN): Pt presents to ED for abd/back pain that started around 1700. Pt also has n/v/d that started around 1999. Pt states she think it may be her gall bladder. Pt is A&O*4 and rates pain 10/10. History of Present Illness HPI narrative: 58-year-old female with history of cholelithiasis, biliary colic a few years ago presents to the ER for concerns of right upper quadrant abdominal pain and back pain that she states is similar to an episode of biliary colic in 2021. She states at that time she had gallstones but did not have her gallbladder removed. Patient states her symptoms onset around 7 PM, approximately 6 hours prior to arrival. She states she had nausea followed by vomiting, and approximately 1 hour later developed diarrhea. Emesis has been nonbloody, nonbilious, diarrhea has been nonbloody, nonmelanotic. Patient does have a history of but no other history of abdominal surgeries. Patient reports taking 1 to 200 mg ibuprofen few hours ago. She also states she took a nausea medication that she is prescribed. She states her symptoms are not well-controlled at this time. She denies dysuria or hematuria, no history of kidney stones. No chest pain, shortness of breath, cough, fevers, or chills. ROS otherwise negative. Related Data Home Medications ?Medication ?Instructions ?Recorded ?Confirmed levothyroxine 75 mcg capsule 75 mcg PO DAILY THYROID 05/08/18 05/30/24 leflunomide 20 mg tablet (Arava) 20 mg PO DAILY R.A. 12/28/22 05/30/24 aspirin 81 mg tablet,delayed 81 mg PO DAILY 08/16/23 05/30/24 release (Adult Aspirin Regimen) calcium carbonate (Calcium 500) 600 mg PO DAILY Supplement 08/16/23 05/30/24 Previous Rx's ?Medication ?Instructions ?Recorded carbamazepine 100 mg chewable 100 mg PO BID trigeminal neuralgia 12/13/23 tablet 90 days #180 tabs ondansetron 4 mg disintegrating 4 mg PO Q8HP PRN Nausea #12 tabs 12/13/23 tablet lisinopril 5 mg tablet 5 mg PO DAILY High blood pressure 03/08/24 #90 tabs Allergies Allergy/AdvReac Type Severity Reaction Status Date / Time No Known Allergies Allergy Verified 05/30/24 08:17 [facility] Disclaimer: The information contained in this section may have been updated after the patient was seen, as this information can be updated by other users. Medical History Hx of skin cancer, basal cell Hx of rheumatoid arthritis Blood in left ear canal Perforation of left tympanic membrane Acute otalgia Family history of heart disease Dyspnea Encounter for pre-operative cardiovascular clearance Chest pain Surgical History Status post surgical removal of malignant neoplasm of skin H/O partial thyroidectomy H/O: Family History Mother Cancer colon Other Coronary artery disease Diabetes Hyperlipidemia Hypertension Social History Smoking Status: Unknown if ever smoked second hand exposure: No alcohol intake: never substance use type: denies use current occupational status: employed Travel in the last 8 weeks: None household members: spouse housing: house current occupation: [employer] current occupational exposures/hazards: No caffeine: No Other Medical History Have you received the Flu Vaccine for this season: No Have you received the Pneumonia Vaccine: No ROS Obtained: Yes All systems reviewed & no additional complaints except as documented Positive ROS per HPI Physical Exam General General appearance: alert and in no apparent distress Head Head exam: atraumatic and normocephalic Eye Eye exam: Present PERRL and EOMI ENT ENT exam: Present mucous membranes moist Neck Neck exam: Present normal inspection and full ROM Chest Chest inspection: Present symmetric chest wall rise Respiratory Respiratory exam: Present normal lung sounds bilaterally; Absent respiratory distress, wheezes or stridor Cardiovascular Cardiovascular exam: Present regular rate and normal rhythm Abdominal Exam Abdominal exam: Present soft and tenderness (Moderate right upper quadrant tenderness to palpation); Absent distention, guarding or rebound Extremities Exam Extremities exam: Present full ROM Back Exam Back exam: Absent tenderness, CVA tenderness (R) or CVA tenderness (L) Neurological Exam Neurological exam: Present alert and oriented X3; Absent motor sensory deficit Psychiatric Psychiatric exam: Present normal affect and normal mood Skin Skin exam: Present warm and dry Medical Decision Making Medical Records Medical records reviewed: Yes I reviewed the patient's medical records. Screening: Per USPSTF and CDC recommendations, given the prevalence of disease in our region, it is our hospital?s policy to screen for HIV and viral Hepatitis for all patients aged 18 and over and those with ongoing risk factors. MR Comment: Review of previous records from March 2022 General Surgery progress note demonstrates patient was evaluated for right upper quadrant abdominal pain and back pain with associated nausea. At that time she had a hepatic cyst and renal cyst, as well as small gallstones but no evidence of biliary dilation. At that time Dr. Braun was interested in performing cholecystectomy thinking it would be beneficial to the patient, however she had had dyspnea on exertion and recommended cardiology evaluation prior to procedure being performed. Navi Inquiry Pt receiving controlled substance: No Vital Signs: 07/13/24 00:32 07/13/24 01:00 07/13/24 01:30 Temperature 97.9 F Temperature Source Oral Pulse Rate 60 58 L Pulse Rate [Left] 68 Respiratory Rate 16 Blood Pressure 140/82 Blood Pressure [Right Arm] 136/84 Blood Pressure Mean 101 Blood Pressure Mean [Right Arm] 101 02 Sat by Pulse Oximetry 98 99 96 Oxygen Delivery Method Room Air 07/13/24 02:00 Temperature Temperature Source Pulse Rate 65 Pulse Rate [Left] Respiratory Rate Blood Pressure 156/82 H Blood Pressure [Right Arm] Blood Pressure Mean Blood Pressure Mean [Right Arm] 02 Sat by Pulse Oximetry 98 Oxygen Delivery Method Lab Data Lab Results 07/13/24 00:46: WBC 17.2 H, RBC 5.62 H, Hgb 16.2, Hct 49.1 H, MCV 87.4, MCH 28.8, MCHC 33.0, RDW 13.1, Plt Count 272, MPV 8.2, Neut % (Auto) 88.4 H, Lymph % (Auto) 6.3 L, [place] % (Auto) 4.7, Eos % (Auto) 0.2, Baso % (Auto) 0.4, Neut # (Auto) 15.2 H, Lymph # (Auto) 1.1, [place] # (Auto) 0.8, Eos # (Auto) 0.0, Baso # (Auto) 0.1, Total Counted 100, Neutrophils % (Manual) 88 H, Lymphocytes % (Manual) 12, RBC Morphology Normal, Tear Drop Cells 1+, Sodium 140, Potassium 3.8, Chloride 105, Carbon Dioxide 29, Anion Gap 9.8, BUN 16, Creatinine 0.80, Estimated Creat Clear 78, Estimated GFR 74, Est GFR ( Amer) 89, Glucose 160 H, Lactate 1.8, Calcium 9.1, Total Bilirubin 0.8, AST 478 H*, ALT 148 H, A lkaline Phosphatase 201 H, Troponin I < 0.01, Total Protein 7.5, Albumin 4.4, Globulin 3.1, Albumin/Globulin Ratio 1.4, Lipase 73736 H, HIV 1&2 Antibody Rapid Nonreactive 07/13/24 00:46 07/13/24 00:46 Orders (Tests/Meds): ED MEDICATIONS Generic Name Dose Route Start Last Admin Trade Name Freq PRN Reason Stop Dose Admin Lactated Ringer's 1,000 mls @ 999 mls/hr 07/13/24 02:59 07/13/24 03:05 Lactated Ringer's 1000 Ml Bag IV 07/13/24 03:59 999 mls/hr .Q1H1M ONE Administration Sodium Chloride 10 ml 07/13/24 01:01 Sodium Chloride 0.9% 10ml Flush Syringe IV 08/12/24 01:00 NEEDED PRN Maintain IV Site Sodium Chloride 10 ml 07/13/24 01:50 07/13/24 01:50 Sodium Chloride 0.9% 10ml Syr (Rad Only) IV 08/12/24 01:49 10 ml NEEDED PRN Administration Maintain IV Site Discontinued Medications Generic Name Dose Route Start Last Admin Trade Name Freq PRN Reason Stop Dose Admin Piperacillin Sod/Tazobactam 100 mls @ 200 mls/hr 07/13/24 03:00 07/13/24 03:08 Sod 4.5 gm/ Sodium Chloride IV 07/13/24 03:29 Not Given ONCE ONE Piperacillin Sod/Tazobactam 100 mls @ 200 mls/hr 07/13/24 03:08 07/13/24 03:09 Sod 4.5 gm/ Sodium Chloride IV 07/13/24 03:37 200 mls/hr ONCE ONE Administration Iopamidol 75 ml 07/13/24 01:50 07/13/24 01:50 Iopamidol-370 (76%);100ml Bottle IV 07/13/24 01:51 75 ml ONCE ONE Administration Ketorolac Tromethamine 15 mg 07/13/24 01:09 07/13/24 01:18 Ketorolac 30mg/Ml Vial IV 07/13/24 01:10 15 mg ONCE ONE Administration Morphine Sulfate 4 mg 07/13/24 01:09 07/13/24 01:18 Morphine 4mg/Ml Syringe IV 07/13/24 01:10 4 mg ONCE ONE Administration Morphine Sulfate 4 mg 07/13/24 02:47 07/13/24 02:51 Morphine 4mg/Ml Syringe IV 07/13/24 02:48 4 mg ONCE ONE Administration Ondansetron HCl 4 mg 07/13/24 01:09 07/13/24 01:18 Ondansetron 4mg/2ml Vial IV 07/13/24 01:10 4 mg ONCE ONE Administration ORDERS Category Date Time Status CT abdomen pelvis w con Stat Cat Scan 07/13/24 01:09 Completed Complete Blood Count Auto Diff Stat Lab 07/13/24 00:46 Completed Comprehensive Metabolic Panel Stat Lab 07/13/24 00:46 Completed HIV (1&2) Antibody Rapid Stat Lab 07/13/24 00:46 Completed Hep C Ab with Reflex to RNA Stat Lab 07/13/24 00:46 Received Lactic Acid Stat Lab 07/13/24 00:46 Completed Lipase Stat Lab 07/13/24 00:46 Completed Troponin I Q3H Lab 07/13/24 04:15 Ordered Troponin I Q3H Lab 07/13/24 07:15 Ordered Troponin I Stat Lab 07/13/24 00:46 Completed Medical Decision Narrative: In summary, this 58-year-old female with comorbidities of known cholelithiasis, biliary colic, rheumatoid arthritis presents to the emergency department today with right upper quadrant abdominal pain radiating to the back for the last 6 hours with associated nausea, vomiting, diarrhea. On initial evaluation patient is hemodynamically stable, afebrile, tenderness to palpation of the right upper quadrant without rebound or guarding, no peritonitis, no CVA tenderness. Differential diagnosis includes but is not limited to biliary colic, cholelithiasis, kidney stone, cholecystitis, pancreatitis, mesenteric adenitis, bowel obstruction, electrolyte abnormality, dehydration, and less likely but considered is atypical presentation of ACS. Based on these concerns, I ordered serum labs, ecg, cardiac enzymes, CT imaging. ECG personally interpreted demonstrates sinus bradycardia, rate 57, normal axis, normal TN and QTc, no STEMI. Patient received toradol, zofran, morphine for treatment. Labs personally reviewed demonstrate notable leukocytosis with WBC 17.2, patient also has a transaminitis, no hyperbilirubinemia, no findings of kidney dysfunction. Initial troponin undetectably low at less than 0.01, significantly reassuring against ACS given patient's duration of symptoms. Lipase took an extended amount of time to result and lab reported that it was because it was so elevated and had to be diluted multiple times over. Even after dilution, it resulted over 28,000. CT abdomen pelvis personally interpreted demonstrates enlarged gallbladder with thickening, concerns for stones, also findings of pancreatitis. See radiology read for final interpretation. Given findings on labs and imaging, I am concerned for gallstone pancreatitis, cholecystitis. Since patient has elevated WBC I am treating her with Zosyn. She is also receiving IV fluids. Patient requires transfer for acute intervention. I discussed this case with transfer center Dr. Evans. We reviewed labs, imaging, and patient's symptoms. He graciously accepted the patient for transfer. Patient is going to [facility] as an ED to ED transfer. Due to her serious condition, need for continued fluids, antibiotics, she requires ALS transfer. Patient was transferred in stable condition. Critical Care Critical Care Time Critical Care Time: No
[2024-07-13 01:18] LABS: Basophils # 0.1 K/mm3 (0-0.2); Basophils % 0.4 % (0.1-2.0); Eosinophils % 0.2 % (0.1-12.0); Hematocrit 49.1 % (37.0-47.0); Hemoglobin 16.2 g/dL (12.2-16.2); Lymphocytes # 1.1 K/mm3 (0.7-4.5); Lymphocytes % 6.3 % (10-50); Mean Corpuscular Hemoglobin 28.8 pg (27.0-31.2); Mean Corpuscular Volume 87.4 fl (81-99); Mean Platelet Volume 8.2 fl (7.4-10.4); Monocytes # 0.8 K/mm3 (0.1-1.0); Monocytes % 4.7 % (1.7-9.3); Neutrophils # 15.2 K/mm3 (1.8-7.8); Neutrophils % 88.4 % (37.0-80.0); Platelet Count 272 K/mm3 (142-424); Red Blood Count 5.62 M/mm3 (4.20-5.40); Red Cell Distribution Width 13.1 % (11.5-17.5); White Blood Count 17.2 K/mm3 (4.8-10.8)
[2024-07-13] MEDS: KETOROLAC 30MG/ML VIAL 15 MG IV (01:18)
[2024-07-13] MEDS: ONDANSETRON 4MG/2ML VIAL 4 MG IV (01:18)
[2024-07-13] MEDS: MORPHINE 4MG/ML SYRINGE 4 MG IV ×2 (01:18→02:51)
[2024-07-13 01:20] LABS: HIV (1&2) Antibody Rapid NONREACTIVE (NONREACTIVE)
[2024-07-13 01:22] LABS: MANUAL DIFFERENTIAL MANUAL DIFFERENTIAL (MANUAL DIFF)
[2024-07-13 01:27] LABS: Alanine Aminotransferase 148 U/L (12-78); Albumin Level 4.4 g/dl (3.5-5.0); Albumin/Globulin Ratio 1.4 (1.1-1.8); Alkaline Phosphatase 201 U/L (38-126); Anion Gap 9.8 mEq/L (5-15); Aspartate Amino Transferase 478 U/L (14-36); Bilirubin,Total 0.8 mg/dl (0.2-1.3); Blood Urea Nitrogen 16 mg/dl (7-17); Calcium 9.1 mg/dl (8.4-10.2); Carbon Dioxide 29 mmol/L (22.0-30.0); Chloride 105 mmol/L (98-107); Creatinine Clearance Estimated 78 mL/min (50-200); Estimated Glomerular Filt Rate 74 ml/min (>60); GFR (African American) 89 ML/MIN (>60); Globulin 3.1 g/dL (1.3-3.2); Glucose 160 mg/dl (74-100); Lactic Acid 1.8 mmol/L (0.7-2.1); Potassium 3.8 mmoL/L (3.5-5.1); Sodium 140 mmol/L (136-145); Total Protein,Serum 7.5 g/dl (6.3-8.2)
--- NOTE | 2024-07-13 01:30 | ECG_ITS ---
APPROVED REPORT Exam: Resting ECG HR:57 bpm ECG Measurements Heart Rate 57 AXES MA 131 P 66 QRSd 69 QRS 62 QT 468 T 63 QTc 462 Conclusion SINUS BRADYCARDIA BORDERLINE ECG No STEMI Electronically signed by : EVARISTO BUCIO, 07/13/2024 07:24:35
[2024-07-13 01:40] LABS: Troponin I < 0.01 ng/ml (0.00-0.034)
[2024-07-13] MEDS: SODIUM CHLORIDE 0.9% 10ML SYR (RAD ONLY) 10 ML IV (01:50)
[2024-07-13] MEDS: IOPAMIDOL-370 (76%);100ML BOTTLE 75 ML IV (01:50)
[2024-07-13 02:31] LABS: Lymphocytes % 12 % (10-50); Neutrophils % 88 % (42-76); RBC Morphology Normal; Tear Drop Cells 1+; Total Cells Counted 100
--- NOTE | 2024-07-13 02:50 | PC.NURSE ---
Called lab per instructions regarding Lipase results. Zahra in lab stated they are trying to get results however, it's extremely high so they're trying to dilute it. informed.
[2024-07-13 02:54] LABS: Lipase 28197 U/L (23-300)
[2024-07-13] MEDS: LACTATED RINGERS 1000ML 1,000 ML 999 ML IV ×2 (03:05→05:45)
[2024-07-13] MEDS: PIPERACILLIN/TAZO 4.5 GM in 0.9 % SODIUM CHLORIDE 100 ML IV (03:09)
--- NOTE | 2024-07-13 04:37 | PC.NURSE ---
Report called to Giovanna MACHUCA at [facility]
[2024-07-14 08:51] LABS: HCV Ab Non Reactive (Non Reactive)
== END 2024-07-13 05:51 | disposition short-term general hospital (02) ==
PROVIDERS: Emergency Provider Emergency Medicine; PCP Internal Medicine
DX: R74.01 Elevation of levels of liver transaminase levels (principal); K81.0 Acute cholecystitis; K85.90 Acute pancreatitis without necrosis or infection, unspecified; R10.11 Right upper quadrant pain; R11.2 Nausea with vomiting, unspecified; M54.9 Dorsalgia, unspecified; R19.7 Diarrhea, unspecified
CPT/HCPCS: 74177; 80053; 83605; 83690; 84484; 85007; 85025; 85027; 86803; 87389; 93005; 96361; 96365; 96374; 96375; 99285; J1885; J2270; J2405; J2543; J7120; Q9967

== ENCOUNTER 2024-11-27 08:46 | Outpatient (CLI) | payer BC, SELFPAY ==
[2024-11-27 08:53] LABS: MANUAL DIFFERENTIAL MANUAL DIFFERENTIAL (MANUAL DIFF)
[2024-11-27 09:38] LABS: Basophils # 0.1 K/mm3 (0-0.2); Basophils % 1.1 % (0.1-2.0); Eosinophils # 0.3 K/mm3 (0.0-0.4); Hemoglobin 13.8 g/dL (12.2-16.2); Lymphocytes # 2.3 K/mm3 (0.7-4.5); Lymphocytes % 41.2 % (10-50); Mean Corpuscular HGB Conc 32.9 g/dL (31.8-35.4); Mean Corpuscular Volume 85.2 fl (81-99); Mean Platelet Volume 10.3 fl (7.4-10.4); Monocytes # 0.7 K/mm3 (0.1-1.0); Monocytes % 11.9 % (1.7-9.3); Neutrophils # 2.3 K/mm3 (1.8-7.8); Neutrophils % 40.6 % (37.0-80.0); Platelet Count 227 K/mm3 (142-424); Red Blood Count 4.93 M/mm3 (4.20-5.40); Red Cell Distribution Width 12.2 % (11.5-17.5); White Blood Count 5.6 K/mm3 (4.8-10.8)
[2024-11-27 10:19] LABS: Alanine Aminotransferase 16 U/L (12-78); Albumin Level 4.8 g/dl (3.5-5.0); Alkaline Phosphatase 110 U/L (38-126); Anion Gap 11.3 mEq/L (5-15); Aspartate Amino Transferase 31 U/L (14-36); Bilirubin,Total 0.3 mg/dl (0.2-1.3); Blood Urea Nitrogen 19 mg/dl (7-17); Calcium 9.5 mg/dl (8.4-10.2); Carbon Dioxide 28 mmol/L (22.0-30.0); Chloride 104 mmol/L (98-107); Estimated Glomerular Filt Rate 86 ml/min (>60); GFR (African American) 104 ML/MIN (>60); Globulin 2.4 g/dL (1.3-3.2); Glucose 98 mg/dl (74-100); Potassium 4.3 mmoL/L (3.5-5.1); Sodium 139 mmol/L (136-145); Total Protein,Serum 7.2 g/dl (6.3-8.2)
[2024-11-27 10:24] LABS: C-Reactive Protein 1.8 mg/L (0-4)
[2024-11-27 10:37] LABS: Erythrocyte Sedimentation Rate 11 mm/hr (0-30)
[2024-11-27 10:45] LABS: Eosinophils % 3 % (0-3); Lymphocytes % 41 % (10-50); Monocytes % 10 % (2-9); Neutrophils % 46 % (42-76); Platelet Estimate Normal; RBC Morphology Normal; Total Cells Counted 100
== END 2024-11-27 23:59 | disposition home or self-care (01) ==
LOC: LAB 08:47
PROVIDERS: PCP Internal Medicine; Visit Provider Nurse Practitioner Family
DX: M05.79 Rheumatoid arthritis with rheumatoid factor of multiple sites without organ or systems involvement (principal); Z79.899 Other long term (current) drug therapy
CPT/HCPCS: 36415; 80053; 85007; 85014; 85018; 85048; 85049; 85651; 86140

== ENCOUNTER 2025-01-10 15:05 | Outpatient (CLI) | payer BC, SELFPAY ==
--- NOTE | 2025-01-10 15:08 | XR_ITS ---
FINAL REPORT CLINICAL HISTORY: Right great toe pain, swelling arount MTP joint FINDINGS: RIGHT FOOT 3 views of the right foot were obtained. There is no acute fracture or dislocation. There are moderate hypertrophic changes at the first metatarsophalangeal joint. There are small osteophytes along the joint margins. There is a minimal plantar spur. Soft tissues are unremarkable. IMPRESSION: No acute bony abnormality. Reviewed, Interpreted and Dictated by Tomi Kimbrough MD Transcribed by Ale Velasquez Authenticated and [facility]
[2025-01-10 19:40] LABS: Thyroid Stimulating Hormone 1.04 uIU/mL (0.465-4.68)
== END 2025-01-10 23:59 | disposition home or self-care (01) ==
LOC: RAD 15:06
PROVIDERS: PCP Internal Medicine; Visit Provider Internal Medicine
DX: M79.674 Pain in right toe(s) (principal); M89.371 Hypertrophy of bone, right ankle and foot; M25.774 Osteophyte, right foot; M77.31 Calcaneal spur, right foot; E03.9 Hypothyroidism, unspecified
CPT/HCPCS: 73630; 84443

== ENCOUNTER 2025-01-10 16:00 | Outpatient (CLI) | payer BC, SELFPAY ==
--- OUTSIDE RECORDS SUMMARY | 2025-01-11 10:33 | XMS_ITS | Continuity of Care Document ---
Author Organization [facility] KENNETH Moreno HASKINS Address [address] [place] [address] Care Team Providers Care Management Nurse Rn Name Role Phone SAKINA ANTONIO Primary Care Provider CARLOS CORNELIUS Tube Builder Assessment No assessment recorded. Plan of Treatment Reminders Order Date Submit Date Provider Last Modified By Organization Details Last Modified Time Details Appointments FOLLOW UP [facility] 2024 10:00A M CARLOS GUERRA MD Not available Not available Not available Lab None recorded . Referral None recorded . Procedures None recorded . Surgeries None recorded . Imaging None recorded . Medication Orders None recorded . Patient TargetsNo targets recorded. Patient InstructionsNo instructions recorded. Reason for Referral None Reported. 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 3 09:10:50 Solar lentigo 44187668 [facility] 09:10:[facility] Seborrheic keratosis 941354897 Active [address] [facility] 3 09:10:50 Problem Notes None recorded. Procedures Surgical History Date Name Laterality Status Provider Name and Address Organization Details Recorded Time 12/07/2024 DAK - Cryo [place] completed Howie Nichols [facility] 12/07/2024 13:13:15 Imaging Results None recorded. Procedure Notes None recorded. Medical Equipment None Reported. Allergies No known drug allergies Medications Name Sig Start Date Stop Date Status Note LastModified by Organization Details LastModified Time aspirin active Not Available Not Avail able Not Available levothyroxine active Not Available Not Available Not Available lisinopril active Not Available Not Av ailable Not Available leflunomide active Not Available Not A vailable Not Available Vitals None Recorded Social History Question Answer Notes LastModified by Organizat ion Details LastModified Time Tobacco Smoking Status Never [facility]oker [facility] 09/02/2023 09:12:58 What Is Your Level Of Alcohol Consumption? None [email or web address] Information not available 09/02/2023 Sunscreen Use? Yes [email or web address] Informatio n not available 09/02/2023 Tanning Bed Use No [email or web address] Informati on not available 09/02/2023 Sex: Female Functional Status None recorded. Mental Status None recorded. Family History Relationship Description Onset Age of this Age Resolved Age Notes LastModified by Organization Details LastModified Time Father No current problems or disability [email or web address] Not available 09/02 09:12:50 Mother No current problems or disability [email or web address] Not available 09/02 09:12:50 Medical History Condition Response Skin Cancer Y Basal Cell Carcinoma Y Gynecological HistoryNo gynecological history recorded. Obstetrics History GPAL:G 0 P 0 0 0 0 Past Encounters Encounter ID Performer Location Encounter Start Date Encounter Closed Date Diagnosis/Indication Diagnosis SNOMED-CT Code Diagnosis ICD10 Code Diagnosis Note [id number] CARLOS GUERRA MD [address] [id number] 12/07/2024 12:39:07 12/07/2024 13:21:00 History of malignant neoplasm of skin 311773866 Z85.828 - No evidence of recurrence ([id number] BCC on R Nasal Tip Tx in 2019)- Counseled on importance of daily sun protection (SPF 30, Broad Spectrum or sun protective clothing) and self skin exams- Recommende d using otc mineral sunscreen to protect skin- Recommend routine FBSE (q6-12 months -- pt prefers q6 months) Solar lentigo 30894421 L 81.4 - Benign brown spots - Sun-induce d Multiple b enign melanocytic nevi 683814909 D22.5 - Benign appearing, reassuranc e - Counseled on importance of daily sun protection and self skin exams/dionicio toring for ugly duckling lesions 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.1 - Benign blood vessel growths - Hereditary Seborrheic keratosis 394 897068 L82.1 - Benign overgrowth s of skin - Hereditary Actinic keratosis 383149 007 L57.0 -Precancer ous nature discussed- Will TX with LN2 today (see proc note)-FUP if sites persist after [place] Health Concerns Section Related Observation LastModified by Organization Detai ls LastModified Time None Recorded Concern Status LastModified by Organization Details LastModified Time None Recorded Payers Encounter Date Sequence Insurance Name Policy Number Policy Shahid Covered Member ID Shahid Member ID Guarantor Name 12/07/2024 1 [place] [id number] Niya Khan [id number] Niya Khan Notes Date Note Type Note Provider Name and Address Organization Details Recorded Time 12/07/2024 text/html Pt is here for a full body skin exam today.- Hx of BCC - R nasal tip (2019, Mohs)- Last skin exam was 02/2024- Spots of concern today: nose, R forearm, R lower leg CARLOS GUERRA MD [address] [place], [address], [facility] 12/07/2024 16:09:02 OBGyn Episode No OBEpisode recorded.
== END 2025-01-10 23:59 | disposition home or self-care (01) ==
LOC: LAB.DROPOF 01-11 10:32
PROVIDERS: PCP Internal Medicine; Visit Provider Internal Medicine
DX: E03.9 Hypothyroidism, unspecified (principal)

== ENCOUNTER 2025-01-28 08:35 | Outpatient (CLI) | payer BC, SELFPAY ==
[2025-01-28 15:32] LABS: Coronavirus 19, PCR Not Detected (NotDetected); Influenza A, PCR Not Detected (NotDetected); Influenza B, PCR Not Detected (NotDetected)
== END 2025-01-28 23:59 | disposition home or self-care (01) ==
LOC: LAB.DROPOF 01-29 13:58
PROVIDERS: PCP Student in an Organized Health Care Education/Training Program; Visit Provider Student in an Organized Health Care Education/Training Program
DX: J02.9 Acute pharyngitis, unspecified (principal)
CPT/HCPCS: 87636

== ENCOUNTER 2025-04-23 07:41 | Outpatient (CLI) | payer BC, SELFPAY ==
--- OUTSIDE RECORDS SUMMARY | 2025-04-23 07:43 | XMS_ITS | Clinical Summary ---
Author Organization [facility] Address [address] [place] [address] Care Team Providers Care Credit Risk Modeler Name Role Phone Fredrick Oseguera MD Primary Care Provider [phone] Allergies No known active allergies Medications aspirin 81 MG EC tablet Take 1 tablet (81 mg) by mouth 1 (one) time each day. Active leflunomide (Arava) 20 MG tablet Take 1 tablet (20 mg) by mouth 1 (one) time each day. Active lisinopril 5 MG tablet Take 1 tablet (5 mg) by mouth 1 (one) time each day. Active calcium carbonate (Maalox) 600 MG chewable tablet Chew 1 tablet (600 mg) 1 (one) time each day. Active carBAMazepine (TEGretol) 100 MG chewable tablet Chew 1 tablet (100 mg) if needed. Active levothyroxine (Synthroid, Levoxyl) 75 MCG tablet Take 1 tablet (75 mcg) by mouth 1 (one) time each day before breakfast. Active oxyCODONE (Roxicodone) 5 MG immediate release tablet Take 1 tablet (5 mg) by mouth every 6 (six) hours if needed for severe pain. 15 tablet 4 Active acetaminophen (Tylenol) 500 MG tablet Take 2 tablets (1,000 mg) by mouth every 6 (six) hours if needed for pain. 100 tablet 4 Active methocarbamol (Robaxin) 500 MG tablet Take 1 tablet (500 mg) by mouth 3 (three) times a day. 50 tablet 4 Active naloxone (Narcan) 4 mg/0.1 mL nasal spray 1. Give 1 spray in nostril for no/slow breathing or cannot wake after opioid use 2. Call 911 3. Repeat in other nostril if symptoms continue 1 each Active Additional Information Patient not taking.Reported on 07/31/2024 Active Problems Problem Noted Date Diagnosed Date HTN (hypertension) 07/15/2024 Hypothyroidism 07/15/2024 Transaminitis 07/15/2024 Leukocytosis 07/15/2024 Hx of section 07/15/2024 Gallstone pancreatitis 07/13/2024 Rheumatoid arthritis 05/08/2024 Overview (07/15/2024): Last Assessment & Plan: * Medications/treatments/interventions tried include: Tylenol, Aleve, She saw a tension worker, steroids (oral & topical), she goes to the chiropractor, Arava, gabapentin, Celebrex * 1st visit to ACL on 07/16/2019 * 07/16/2019: IgA RF+, IgM RF+, CCP negative, SUJATHA negative, LUCIAN negative 1. Handout on osteoarthritis given to the patient to take home and review. 2. Continue Arava. Refill today. She would like a 90 day supply. 3. We will monitor labs every 8-12 weeks for medication toxicity. New lab orders given today 4. She seems to be doing well. 5. Follow up in 3-4 months 6. She still has fatigue from Coid-19. Osteoarthritis 05/08/2024 Overview (07/15/2024): Last Assessment & Plan: * Medications/treatments/interventions tried include: Tylenol, Aleve, She saw a tension worker, steroids (oral & topical), she goes to the chiropractor, Arava, gabapentin, Celebrex 1. Tylenol PRN is ok as directed 2. She has tried NSAIDS Like Aleve PRN 3. She has gone to see a chiropractor 4. She has taken/tried gabapentin for neuropathic pain 5. Continue/refill Celebrex PRN 6. She has had thoracic pain for two weeks. 7. Handout on thoracic exercises to try at home. Solar lentigo 09/02/2023 Senile angioma 09/02/2023 Seborrheic keratosis 09/02/2023 Multiple benign melanocytic nevi 09/02/2023 Social History Tobacco Use Types Packs/Day Years Used Date Smoking Tobacco: Never Passive Smoke Exposure: Past Smokeless Tobacco: Never Tobacco Cessation:Counseling Given: No Alcohol Use Standard Drinks/Week Comments Yes 0 (1 standard drink = 0.6 oz pur e alcohol) RARELY Humiliation, Afraid, Rape, and Kick questionnair e Answer Date Recorded Within the last year, have y ou been afraid of your partner or ex-partner? No 07/16/2024 Within the last year, have y ou been humiliated or emotionally abused in other ways by your partner or ex-partner? No Within the last year, have y ou been kicked, hit, slapped, or otherwise physically hurt by your partner or ex-partner? No 07/16/2024 Within the last year, have y ou been raped or forced to have any kind of sexual activity by your partner or ex-partner? No 07/16/2024 Hunger Vital Sign Answer Date Recorded Within the past 12 months, y ou worried that your food would run out before you got the money to buy more. Never true 07/16/20 24 Within the past 12 months, t he food you bought just didn't last and you didn't have money to get more. Never true 07/16/2024 PRAPARE - Transportation Answer Date Re corded In the past 12 months, has l ack of transportation kept you from medical appointments or from getting medications? No 06/20 In the past 12 months, has l ack of transportation kept you from meetings, work, or from getting things needed for daily living? No 07/16/2024 Housing Stability Vital Sign Answer Isma e Recorded In the last 12 months, was t here a time when you were not able to pay the mortgage or rent on time? No 07/16/2024 In the last 12 months, how many places have you lived? 1 07/16/2024 In the last 12 months, was t here a time when you did not have a steady place to sleep or slept in a [place] [facility] [place] facility (including now)? No 07/16/2024 Utilities Answer Date Recorded In the past 12 months has [employer] electric, gas, oil, or water company threatened to shut off services in your home? No 07/16/2024 Comments No Sex and Gender Information Value Date Recorded Sex Assigned at Female 07/13/2024 7:33 AM EDT Legal Sex Female 8:25 PM EDT Gender Identity Female 07/19/2024 12:33 PM EDT Sexual Orientation Not on file Last Filed Vital Signs Vital Sign Reading Time Taken Comments Blood Pressure 111/78 07/31/2024 3:14 PM EST Pulse 74 07/31/2024 3:14 PM EST Temperature 36.5 C (97.7 F) 07/31/2024 3:14 PM EST Respiratory Rate 14 07/21/2024 8:14 AM EDT Oxygen Saturation 94% 07/21/2024 11:55 AM EDT Inhaled Oxygen Concentration - - Weight 60.4 kg (133 lb 3.2 oz) 07/31/2024 3:14 P M EST Height 165.1 cm (5' 5 ) 07/31/2024 3:14 PM EST Body Mass Index 22.17 07/31/2024 3:14 PM EST Plan of Treatment Upcoming Encounters Date Type Department Care Team (Late st Contact Info) Description 09/27/2025 11:00 AM EST Ovarian Cancer Screening [facility] Gynecology [address] [facility], [address] [place] [address] Health Maintenance Due Date Last Done Comments [facility]-Depression Screening 1966 [facility]-/Child/Adol SDOH Screenings 1966 [facility]-Hepatitis B Vaccines (1 of 3 - 19+ 3-dose series) 1985 [facility]-Pneumococcal Vaccine: 50+ Years (1 of 2 - PCV) 1985 [facility]-Zoster Vaccines (1 of 2) 1985 [facility]-Pap Smear 1987 [facility]-Cervical Cancer Screening 1996 [facility]-HPV/Cotest 1996 [facility]-DTaP,Tdap,and Td Vaccines (1 - Tdap) 11/26/1996 11/25/1996 CT Colonography 2011 Colonoscopy 2011 FIT-DNA 2011 FIT 2011 FOBT 2011 Sigmoidoscopy 2011 [facility]-Colorectal Cancer Screening 2011 OPV-CBIPF-51 Vaccine ( season) 2024 06/05/2024, 06/07/2023, 07/19/2022, Additional history exists [facility]- SDOH Screenings 01/14/2025 [facility]-Adult SDOH Screenings 01/14/2025 07/16/2024 [facility]-Influenza Vaccine (#1) 05/20/202506/05, 06/07/2023, 06/25/2022, Additional history exists [facility]-Breast Cancer Screening 07/25/202502/2023, 07/25/2023, 07/19/2022, Additional history exists [facility]-HIV Screening Completed 07/13/2024 [facility]-Hepatitis C Screening Completed 07/13/2024 HPV Vaccines Aged Out No longer eligi ble based on patient's age to complete this topic [facility]-HIB Vaccines Aged Out No longer e ligible based on patient's age to complete this topic [facility]-Hepatitis A Vaccines Aged Out No longer eligible based on patient's age to complete this topic [facility]-IPV Vaccines Aged Out No longer e ligible based on patient's age to complete this topic [facility]-Rotavirus Vaccines Aged Out No lo nger eligible based on patient's age to complete this topic Procedures Procedure Name Priority Date/Time Associated Diagnosis Comments HEPATITIS C ANTIBODY - ED W/REFLEX TO HCV QUANT PCR STAT 07/13/2024 8:18 AM EDT ED HIV 1/2 ANTIBODY/ANTIGEN SCREEN WITH REFLEX TO HIV I/II DIFFERENTIATION STAT 07/13/2024 8:18 AM EDT from Last 3 Months or Most Recently Relevant to Health Maintenance Results * ED HIV 1/2 Antibody/Antigen Screen w/Reflex to HIV 1/2 Differentiation (07/13/2024 8:18 AM EDT) HIV 1 & 2 Antibody/Antigen Screen Non Reactive Non Reactive 07/13/2024 10:15 AM EDT [facility] Comment:Screening for HIV 1 & 2 antibodies, and P24 antigen is NONREACTIVE. No confirmatory testing is required. Blood Venous blood specimen / Unknown Venipuncture / Unknown 07/13/2024 8:18 AM EDT 07/13/2024 8:22 AM EDT Jas Negron MD LAB BLOOD ORDERABLES Final Res ult Performing Organization Address City/[facility]/ZIP Co de Phone Number [facility] [address] [place] [address] * Hepatitis C Antibody - ED (07/13/2024 8:18 AM EDT) Hepatitis C Antibody Negative Negative 07/13/2024 10:11 AM EDT [facility]ALTH[facility] Blood Venous blood specimen / Unknown Venipuncture / Unknown 07/13/2024 8:18 AM EDT 07/13/2024 8:22 AM EDT Jas Negron MD LAB BLOOD ORDERABLES Final Res ult Performing Organization Address City/[facility] Co de Phone Number [facility] [address] [place] [address] from Last 3 Months or Most Recently Relevant to Health Maintenance [place] [address] ANTH Advance Directives * Full Code (Latest Code Status on File) Date Activated Date Inactivated Comments 07/13/2024 9:35 AM 07/21/2024 3:58 PM Question Answer Comments Patient has decision-making capacity? Yes Care Teams Credit Risk Modeler Relationship Specialty Start Date End Date Fredrick Oseguera MD [address] [facility] [address] [place] [address] PCP - General 05/14/22
--- OUTSIDE RECORDS SUMMARY | 2025-04-23 07:43 | XMS_ITS | Clinical Summary ---
Author Organization [facility] Address [address] [place] [address] Phone Care Team Providers Care Grain Cleaner And Transfer Operator Name Role Phone Fredrick Oseguera MD Primary Care Provider [phone] Social History Tobacco Use Types Packs/Day Years Used Date Smoking Tobacco: Never Assessed Comments Unknown Sex and Gender Information Value Date Recorded Sex Assigned at Not on file Legal Sex Female 9:02 AM EDT Gender Identity Not on file Sexual Orientation Not on file Plan of Treatment Health Maintenance Due Date Last Done Comments Annual Wellness Exam 1969 DTaP/TDaP/Td (1 - Tdap) 1985 Hepatitis B Vaccine (1 of 3 - 19+ 3-dose series) 1985 Cervical Cancer Screening 1987 Pap Smear 1987 HPV/Pap Cotest 1996 Cologuard 2011 Colon Cancer Screening 2011 Colonoscopy 2011 FIT 2011 Sigmoidoscopy 2011 Virtual Colonography 2011 Breast Cancer Screening 04/05/2015 04/05/2013 Pneumococcal Vaccine 50+ (1 of 1 - PCV) 2016 Zoster (1 of 2) 2016 COVID-19 Vaccine (2023-2 5 season) 2024 Influenza Vaccine (#1) 2025 Meningococcal B Vaccine Aged Out No l onger eligible based on patient's age to complete this topic Procedures Procedure Name Priority Date/Time Associated Diagnosis Comments MM MOBILE MAMMO DIGITAL SCREEN W CAD CATIA Routine 04/05/2013 2:20 PM EDT Other screening mammogram from Last 3 Months or Most Recently Relevant to Health Maintenance Results * MM MOBILE MAMMO DIGITAL SCREEN W CAD CATIA (04/05/2013 2:20 PM EDT) Anatomical Region Laterality Modality Breast Mammography 04/10/2013 5:46 AM EDT Impressions 09/13/2013 8:54 AM EST : Negative ([id number]) ~ RECOMMENDATION: Routine screening mammogram in 1 year. ~ * The patient with a palpable abnormality, unexplained by breast imaging, should be managed on clinical basis by the attending physician. * Breast imaging has a false negative rate of 15%. * The patient was notified by mail of the results of this examination. *The patient's information was entered into a reminder system with a target due date for the next mammogram. The mammogram was reviewed by a Radiologist and CAD. Narrative 09/13/2013 8:54 AM EST Procedure:MM MOBILE MAMMO DIGITAL SCREEN W CAD CATIA ~ Reason for exam: screening (asymptomatic). ~ MM MOBILE MAMMO DIGITAL SCREEN W CAD CATIA Bilateral CC and MLO view(s) were taken. The breast tissue is heterogeneously dense. This may lower the sensitivity of mammography. Compared to prior studies the most recent being 03-09-12 ~ Procedure Note Arias Honeycutt MD - 09/13/2013 Procedure:MM MOBILE MAMMO DIGITAL SCREEN W CAD CATIA ~ Reason for exam: screening (asymptomatic). ~ MM MOBILE MAMMO DIGITAL SCREEN W CAD CATIA Bilateral CC and MLO view(s) were taken. The breast tissue is heterogeneously dense. This may lower thesensitivity of mammography. Compared to prior studies the most recent being 03-09-12 ~ IMPRESSION: Negative ([id number]) ~ RECOMMENDATION: Routine screening mammogram in 1 year. ~ * The patient with a palpable abnormality, unexplained by breast imaging, should be managed on clinical basis by the attending physician. * Breast imaging has a false negative rate of 15%. * The patient was notified by mail of the results of this examination. *The patient's information was entered into a reminder system with atarget due date for the next mammogram. The mammogram was reviewed by a Radiologist and CAD. us Roberto Jay MD IMG MAMMOGRAPHY ORDERABLES Fin al Result from Last 3 Months or Most Recently Relevant to Health Maintenance Insurance [employer] [facility] Care Teams Grain Cleaner And Transfer Operator Relationship Specialty Start Date End Date Fredrick Oseguera MD [address] [place] [address] PCP - General Internal Medicine 03/26/13
--- OUTSIDE RECORDS SUMMARY | 2025-04-23 07:43 | XMS_ITS | Encounter Summary ---
[facility] Address [address] [place] [address] Care Team Providers Care Block Saw Operator Name Role Phone Fredrick Oseguera MD Primary Care Provider Encounter Details Date Type Department Care Team ([facility] Contact Info) Description 11/27/2024 Results Follow-Up [facility] RHEUMATOLOGY [address] [address] Chelsea Herman APRN [address] [address] Social History Tobacco Use Types Packs/Day Years Used Date Smoking Tobacco: Never Smokeless Tobacco: Never Alcohol Use Standard Drinks/Week Comments Never 0 (1 standard drink = 0.6 oz pur e alcohol) Comments No Sex and Gender Information Value Date Recorded Sex Assigned at Not on file Legal Sex Female 9:01 AM EDT Gender Identity Not on file Sexual Orientation Not on file documented as of this encounter Plan of Treatment Upcoming Encounters Date Type Department Care Team (Late st Contact Info) Description 04/29/2025 9:45 AM EDT Office Visit [facility] RHE[facility]OLOG[facility] [address] [address] Chelsea Herman APRN [address] [id number] documented as of this encounter Visit Diagnoses Not on filedocumented in this encounter Care Teams Block Saw Operator Relationship Specialty Start Date End Date Fredrick Oseguera MD [address] [facility] [address] [place] [address] PCP - General Internal Medicine 01/03/17 documented as of this encounter
--- OUTSIDE RECORDS SUMMARY | 2025-04-23 07:43 | XMS_ITS | Encounter Summary ---
Author Organization Healthcare Address [address] [place] [address] Care Team Providers Care Back Tacker Name Role Phone Fredrick Oseguera MD Primary Care Provider Encounter Details Date Type Department Care Team (Late st Contact Info) Description 07/13/2024 Orders Only External Location [address] [place] [address] Provider, External Social History Tobacco Use Types Packs/Day Years Used Date Smoking Tobacco: Never Smokeless Tobacco: Never Humiliation, Afraid, Rape, and Kick questionnair e [...] place to sleep or slept in a nursing home (including now)? No 07/16/2024 Utilities Answer Date Recorded In the past 12 months has th e electric, gas, oil, or water company threatened to shut off services in your home? No 07/16/2024 Comments Unknown Sex and Gender Information Value Date Recorded Sex Assigned at Female 07/13/2024 7:33 AM EDT Legal Sex Female 8:25 PM EDT Gender Identity Female 07/19/2024 12:33 PM EDT Sexual Orientation Not on file documented as of this encounter Functional Status * Calculated C-SSRS Risk Score (Lifetime/Recent) Answer Date of Assessment Author No Risk Indicated 07/15/2024 8:00 AM EDT Stella Venegas RN * Question Answer Date of Assessment Author 1. Wish to be (Past 1 Month) No 024 8:00 AM EDT Stella Venegas RN 2. Non-Specific Active Suici summer Thoughts (Past 1 Month) No 07/15/2024 8:00 AM EDT Nury Venegas RN 6. Suicidal Behavior (Lifetime) No 8:00 AM EDT Stella Venegas RN documented as of this encounter Plan of Treatment Upcoming Encounters Date Type Department Care Team (Late st Contact Info) Description 09/27/2025 11:00 AM EST Ovarian Cancer Screening [facility] Gynecology [address] [facility] [place] [address] documented as of this encounter Procedures Procedure Name Priority Date/Time Associated Diagnosis Comments CT OUTSIDE IMAGES 07/13/2024 1:45 AM EDT documented in this encounter Results * CT OUTSIDE IMAGES (07/13/2024 1:45 AM EDT) Anatomical Region Laterality Modality Computed Tomogra phy 07/13/2024 1:45 AM EDT us External Provider IMG CT PROCEDURES Final Result documented in this encounter Visit Diagnoses Not on filedocumented in this encounter Additional Health Concerns Assessment Noted Time A Body Mass Index follow-up plan has been documented for the patient 07/21/2024 12:42 PM EDT documented as of this encounter Care Teams Back Tacker Relationship Specialty Start Date End Date Fredrick Oseguera MD [address] [place] [address] [address] [place] [address] PCP - General 05/14/22 documented as of this encounter
--- OUTSIDE RECORDS SUMMARY | 2025-04-23 07:43 | XMS_ITS | Clinical Summary ---
Author Organization [facility] Address [address] [place] [address] Care Team Providers Care Craft Demonstrator Name Role Phone Fredrick Oseguera MD Primary Care Provider [phone] Allergies No known active allergies Medications lisinopril (PRINIVIL,ZESTRIL) 5 MG tablet Take 1 tablet by mouth Daily. Active levothyroxine sodium (Tirosint) 75 MCG capsule Take 1 capsule by mouth Daily. Active calcium carbonate (OS-SASKIA) 600 MG tablet Take 1 tablet by mouth Daily. Active aspirin 81 MG chewable tablet Chew 1 tablet Daily. Active carBAMazepine (CARBATROL) 100 MG 12 hr capsule Take 1 capsule by mouth Every 12 (Twelve) Hours. Active ondansetron ODT (ZOFRAN-ODT) [address] 1 tablet on the tongue Every 8 (Eight) Hours As Needed for Nausea or Vomiting. 60 tablet 3 4 Active acetaminophen (TYLENOL) 500 MG tablet Take 2 tablets (1,000 mg) by mouth every 6 (six) hours if needed for pain. 4 Active leflunomide (ARAVA) 20 MG tablet Take 1 tablet by mouth Daily. 90 tablet 1 5 Active Active Problems Problem Noted Date Diagnosed Date High risk medication use 05/10/2024 Assessment & Plan (12/07/2024 10:49 AM EDT): Leflunomide 20 mg PO once/day for RA 1. CBC and CMP every 8-12 weeks to monitor for medication toxicity. 2. No recent serious infections. 3. Refill today Orders: CBC Auto Differential; Future Comprehensive Metabolic Panel; Future C-reactive Protein; Future Sedimentation Rate; Future Assessment & Plan (06/27/2024 1:37 PM EDT): * Leflunomide 20 mg/day for RA 1. CBC and CMP every 8-12 weeks to monitor for toxicity. 2. Standing lab orders written and given to the patient today. 3. No recent serious infections. 4. 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 In general, low dose daily aspirin for the treatment or prevention of heart disease or stroke is safe to take. Acetaminophen (Tylenol) is generally safe to take as directed for headaches, cramps or other aches and pains or fever reduction Osteoarthritis 05/08/2024 Assessment & Plan (12/07/2024 10:49 AM EDT): Tylenol PRN is ok as directed She has tried taking oral NSAIDS PRN She has tried gabapentin for neuropathic pain She saw a chiropractor Orders: CBC Auto Differential; Future Comprehensive Metabolic Panel; Future C-reactive Protein; Future Sedimentation Rate; Future Assessment & Plan (06/28/2024 3:17 PM EDT): * Medications/treatments/interventions tried include: Tylenol, Aleve, She saw a recruiter account manager, steroids (oral & topical), she goes to [...] on thoracic exercises to try at home. Seropositive rheumatoid arthritis 05/08/2024 Assessment & Plan (12/07/2024 10:49 AM EDT): Medication/treatment/interventions tried include: Luna Corrales, she saw dermatology, steroids (oral and topical), chiropractor, Arava, gabapentin, Celebrex 1st Visit to ACL on 07/16/2019 07/16/2019: IgA RF+, IgM RF+, CCP negative Handout on RA given to her to take home She just had labs 11/27/24. Will give her a lab order to take with her for next time. Follow up in 3-4 months Continue/refill leflunomide Orders: CBC Auto Differential; Future Comprehensive Metabolic Panel; Future C-reactive Protein; Future Sedimentation Rate; Future Assessment & Plan (06/27/2024 1:37 PM EDT): * Medications/treatments/interventions tried include: Luna Corrales, She saw a recruiter account manager, steroids (oral & topical), she goes to [...] 6. She still has fatigue from Coid-19. Resolved Problems Problem Noted Date Diagnosed Date Resolved Date Nausea 06/28/2024 12/07/2024 Assessment & Plan (06/28/2024 3:18 PM EDT): Nausea much worse lately Will trial ron Encouraged her to see PCP for nausea work up. ESR raised 05/08/2024 12/07/2024 Immunizations Immunization Administration Dates Next Due COVID-19 (MODERNA) 12YRS+ (SPIKEVAX) 08/27/2021 Influenza, Unspecified 05/28/2021,06/09/2020 Family History Medical History Relation Name Comments Breast cancer Neg Hx Ovarian cancer Neg Hx Social History Tobacco Use Types Packs/Day Years Used Date Smoking Tobacco: Never Smokeless Tobacco: Never Alcohol Use Standard Drinks/Week Comments Never 0 (1 standard drink = 0.6 oz pur e alcohol) Comments No Sex and Gender Information Value Date Recorded Sex Assigned at Not on file Legal Sex Female 9:01 AM EDT Gender Identity Not on file Sexual Orientation Not on file Last Filed Vital Signs Vital Sign Reading Time Taken Comments Blood Pressure 110/64 12/07/2024 9:44 AM EDT Pulse 58 12/07/2024 9:44 AM EDT Temperature 36.3 C (97.3 F) 12/07/2024 9:44 AM EDT Respiratory Rate - - Oxygen Saturation - - Inhaled Oxygen Concentration - - Weight 61.8 kg (136 lb 4.8 oz) 12/07/2024 9:44 A M EDT Height 165.1 cm (5' 5 ) 12/07/2024 9:44 AM EDT Body Mass Index 22.68 12/07/2024 9:44 AM EDT Plan of Treatment Upcoming Encounters Date Type Department Care Team (Late st Contact Info) Description 04/29/2025 9:45 AM EDT Office Visit [facility] RHEUMATOLOGY [address] [phone] Chelsea Herman APRN [address] [id number] Health Maintenance Due Date Last Done Comments Annual Gynecologic Pelvic an d Breast Exam 1966 PAP SMEAR 1987 TDAP/TD VACCINES (2 - Tdap) 11/25/2006 11/25/1996 COLOGUARD 2011 COLON CANCER SCREENING 5 YEA R SIGMOIDOSCOPY 2011 COLONOSCOPY 2011 [address]AL CANCER SCREENING 2011 CT COLONOGRAPHY 2011 FECAL OCCULT BLOOD TEST 2011 FIT Testing (1 year) 2011 Pneumococcal Vaccine 50+ (1 of 1 - PCV) 2016 ZOSTER VACCINE (1 of 2) 2016 ANNUAL PHYSICAL 03/19/2024 INFLUENZA VACCINE 06/19/2025 06/05/2024, , 06/25/2022, Additional history exists MAMMOGRAM 11/28/2026 11/28/2024, 05/2 , 07/25/2023, Additional history exists COVID-19 Vaccine Completed 06/05/2024, , 07/19/2022, Additional history exists HEPATITIS C SCREENING Completed 07/13/2024 Procedures Procedure Name Priority Date/Time Associated Diagnosis Comments MAMMO SCREENING DIGITAL TOMOSYNTHESIS BILATERAL W CAD Routine 11/28/2024 10:39 AM EDT Breast cancer screening by mammogram from Last 3 Months or Most Recently Relevant to Health Maintenance Results * Mammo Screening Digital Tomosynthesis Bilateral With CAD (11/28/2024 10:39 AM EDT) Anatomical Region Laterality Modality Breast N/A Mammography 11/29/2024 11:5 1 AM EDT Impressions 11/29/2024 11:52 AM EDT Negative bilateral mammogram. RECOMMENDATION: Continue annual screening mammography. BI-RADS CATEGORY 1, NEGATIVE. CAD was utilized. The standard false-negative rate of mammography is between 10% and 25%. Complex patterns or increased breast density will markedly elevate the false-negative rate of mammography. A letter, in lay terminology, with the results of this exam will be mailed to the patient. 11/29/2024 11:[address] Tapan Paula MD on Narrative 11/29/2024 11:52 AM EDT DIGITAL SCREENING MAMMOGRAM WITH TOMOSYNTHESIS HISTORY: Screening Mammography. Low dose full field digital breast tomosynthesis imaging was performed with 2D and 3D acquisitions consisting of bilateral CC and MLO views. Examination is compared to prior examination dating back to 11/03/2015. Examination is read in conjunction with computer aided detection. FINDINGS: The breast tissue is heterogeneously dense, which may obscure small masses. No suspicious masses, microcalcifications or areas of architectural distortion are present. Fredrick Oseguera MD IMG MAMMOGRAPHY ORDERABLES Fin al Result from Last 3 Months or Most Recently Relevant to Health Maintenance Insurance [facility] PPO Care Teams Craft Demonstrator Relationship Specialty Start Date End Date Fredrick Oseguera MD [address] [facility] [address] [place] [id number] PCP - General Internal Medicine 01/03/17
[2025-04-23 07:54] LABS: Hematocrit 40.7 % (37.0-47.0); Hemoglobin 13.6 g/dL (12.2-16.2); Immature Granulocytes % 0.3 %; Mean Corpuscular HGB Conc 33.4 g/dL (31.8-35.4); Mean Corpuscular Hemoglobin 28.7 pg (27.0-31.2); Mean Corpuscular Volume 85.9 fl (81-99); Nucleated Red Blood Cells % 0 %; Platelet Count 244 K/mm3 (142-424); Red Blood Count 4.74 M/mm3 (4.20-5.40); Red Cell Distribution Width-SD 38.5 fL; White Blood Count 6.5 K/mm3 (4.8-10.8)
[2025-04-23 08:25] LABS: Albumin Level 3.9 g/dl (3.5-5.0); Chloride 101 mmol/L (98-107); Sodium 136 mmol/L (136-145)
[2025-04-23 08:26] LABS: Potassium 4.3 mmoL/L (3.5-5.1)
[2025-04-23 08:28] LABS: Alanine Aminotransferase 12 U/L (12-78); Albumin/Globulin Ratio 1.1 (1.1-1.8); Alkaline Phosphatase 127 U/L (38-126); Anion Gap 9.3 mEq/L (5-15); Aspartate Amino Transferase 30 U/L (14-36); Bilirubin,Total 0.3 mg/dl (0.2-1.3); Blood Urea Nitrogen 14 mg/dl (7-17); Carbon Dioxide 30 mmol/L (22.0-30.0); Creatinine,Serum 0.70 mg/dl (0.52-1.04); Estimated Glomerular Filt Rate 86 ml/min (>60); GFR (African American) 104 ML/MIN (>60); Globulin 3.5 g/dL (1.3-3.2); Total Protein,Serum 7.4 g/dl (6.3-8.2)
[2025-04-23 08:29] LABS: Calcium 9.7 mg/dl (8.4-10.2); Glucose 107 mg/dl (74-100)
[2025-04-23 08:34] LABS: C-Reactive Protein 2.1 mg/L (0-4)
== END 2025-04-23 23:59 | disposition home or self-care (01) ==
LOC: LAB 07:42
PROVIDERS: PCP Internal Medicine; Visit Provider Internal Medicine
DX: M05.9 Rheumatoid arthritis with rheumatoid factor, unspecified (principal); M15.0 Primary generalized (osteo)arthritis; Z79.899 Other long term (current) drug therapy
CPT/HCPCS: 36415; 80053; 85025; 85651; 86140

== ENCOUNTER 2025-08-14 07:13 | Outpatient (CLI) | payer BC, SELFPAY ==
--- OUTSIDE RECORDS SUMMARY | 2025-08-14 07:17 | XMS_ITS | Clinical Summary ---
Author Organization [facility] Address [address] [place] [address] Phone Care Team Providers Care Department Supervisor Name Role Phone Fredrick Oseguera MD Primary Care Provider Social History Tobacco Use Types Packs/Day Years [...] Zoster (1 of 2) 2016 COVID-19 Vaccine (2024-2 6 season) 2025 Influenza Vaccine (#1) 2025 Meningococcal B Vaccine [...] Impressions 09/13/2013 8:54 AM EST : Negative ([id number]) ~ RECOMMENDATION: Routine screening mammogram in 1 [...] most recent being 03-09-12 ~ IMPRESSION: Negative ([id number]) ~ RECOMMENDATION: Routine screening mammogram in 1 [...] Relevant to Health Maintenance Insurance [employer] PPO [facility] Care Teams Department Supervisor Relationship Specialty Start Date End Date Fredrick Oseguera MD [address] [place] [address] [place] [address] PCP - General Internal Medicine 03/26/13
--- OUTSIDE RECORDS SUMMARY | 2025-08-14 07:17 | XMS_ITS | Clinical Summary ---
Author Organization [facility] Address [address] [place] [address] Care Team Providers Care Kingsbury Machine Operator Name Role Phone Fredrick Oseguera MD Primary Care Provider [phone] Allergies No known active allergies Medications aspirin [...] tried include: Tylenol, Aleve, She saw a pulling machine operator, steroids (oral & topical), she goes to [...] tried include: Tylenol, Aleve, She saw a pulling machine operator, steroids (oral & topical), she goes to [...] place to sleep or slept in a alf (including now)? No 07/16/2024 Utilities Answer Date Recorded In the past 12 months has th [employer] electric, gas, oil, or water company threatened [...] 09/27/2025 11:00 AM EST Ovarian Cancer Screening [facility] Gynecology [address] [place] [address] Health Maintenance Due Date Last Done Comments [facility]-Depression Screening 1966 [facility]-Infant/Child/Adol SDOH Screenings 1966 [facility]- SDOH Screenings 1984 [facility]-Adult SDOH Screenings 1984 [facility]-Hepatitis B Vaccines (1 of 3 - 19+ 3-dose series) 1985 [facility]-Pneumococcal Vaccine: 50+ Years (1 of 2 - PCV) 1985 [facility]-Zoster Vaccines (1 of 2) 1985 [facility]-Pap Smear 1987 [facility]-Cervical Cancer Screening 1996 [facility]-HPV/Cotest 1996 [facility]-DTaP,Tdap,and Td Vaccines (1 - Tdap) 11/26/1996 11/25/1996 CT Colonography 2011 Colonoscopy 2011 FIT-DNA 2011 FIT 2011 FOBT 2011 Sigmoidoscopy 2011 [facility]-Colorectal Cancer Screening 2011 [id number] Vaccine ( season) 2025 06/05/2024, 06/07/2023, 07/19/2022, Additional history exists [facility]-Influenza Vaccine (#1) 05/20/202506/05, 06/07/2023, 06/25/2022, Additional history exists [facility]-Breast Cancer Screening 07/25/2025 110 02/2023, 07/25/2023, 07/19/2022, Additional history exists [facility]-HIV Screening [...] Reactive Non Reactive 07/13/2024 10:15 AM EDT [facility] Comment:Screening for HIV 1 & 2 antibodies, and P24 antigen is NONREACTIVE. No confirmatory testing is required. Blood Venous blood specimen / Unknown Venipuncture / Unknown 07/13/2024 8:18 AM EDT 07/13/2024 8:22 AM EDT Jas Nergon MD LAB BLOOD ORDERABLES Final Res ult Performing Organization Address City/[facility] [address]/[facility] Co de Phone Number HEALTHCARE [facility] [address] [place] [address] * Hepatitis C Antibody - ED (07/13/2024 8:18 AM EDT) [facility] Signature Hepatitis C Antibody Negative Negative 07/13/2024 10:11 AM EDT [facility] Blood Venous blood specimen / Unknown Venipuncture / Unknown 07/13/2024 8:18 AM EDT 07/13/2024 8:22 AM EDT Jas Negron MD LAB BLOOD ORDERABLES Final Res ult Performing Organization Address City/[facility] [address]/[facility] de Phone Number HEALTHCARE LAB [address] [place] [address] from Last 3 Months or Most Recently Relevant to [place] [address] [place] [address] ANTH Advance Directives * Full Code (Latest Code Status on File) Date Activated Date Inactivated Comments 07/13/2024 9:35 AM 07/21/2024 3:58 PM Question Answer Comments Patient has decision-making capacity? Yes Care Teams Kingsbury Machine Operator Relationship Specialty Start Date End Date Fredrick Oseguera MD [address] [facility] [address] [place] [address] PCP - General 05/14/22
--- OUTSIDE RECORDS SUMMARY | 2025-08-14 07:17 | XMS_ITS | Encounter Summary ---
Author Organization [facility] Address [address] [place] [id number] Care Team Providers Care Firewall Administrator Name Role Phone Fredrick Oseguera MD Primary Care Provider [phone] Reason for Visit * Reason Comments Med Refill Encounter Details Date Type Department Care Team (Late st Contact Info) Description 07/05/2025 Refill [facility] RHEUMATOLOGY [address] [address] Madhu Leonard DO [address] [phone] Social History Tobacco Use Types Packs/Day Years [...] on file documented as of this encounter Miscellaneous Notes * Telephone Encounter - Bob Dean MA - 07/05/2025 10:27 AM EDT Rx Refill Note Requested Prescriptions Pending Prescriptions Disp Refills leflunomide (ARAVA) 20 MG tablet [Pharmacy Med Name: LEFLUNOMIDE 20MG TABS] 90 tablet 1 Sig: TAKE ONE TABLET BY MOUTH EVERY DAY Last office visit with prescribing clinician: 04/29/2025 Last telemedicine visit with prescribing clinician: Next office visit with prescribing clinician: 08/19/2025 Labs 04/23/2025 Would you like a call back once the refill request has been completed: [] Yes [] No If the office needs to give you a call back, can they leave a voicemail: [] Yes [] No Rx sent, hub ok to relay Bob Dean MA 07/05/25, 10:27 EDT documented in this encounter Plan of Treatment Upcoming Encounters Date Type Department Care Team (Late st Contact Info) Description 08/19/2025 11:00 AM EST Office Visit [facility] RHEUMATOLOGY [address] [address] Chelsea Herman APRN 330 [facility] [address] [place] [address] documented as of this encounter Visit Diagnoses Not on filedocumented in this encounter Care Teams Firewall Administrator Relationship Specialty Start Date End Date Fredrick Oseguera MD [address] [facility] [address] [facility] [address] [place] [address] PCP - General Internal Medicine 01/03/17 documented as of this encounter
--- OUTSIDE RECORDS SUMMARY | 2025-08-14 07:17 | XMS_ITS | Clinical Summary ---
Author Organization [facility] Address [address] [place] [address] Care Team Providers Care Environmental Technical Officer Name Role Phone Fredrick Oseguera MD Primary Care Provider [phone] Allergies No known active allergies Medications lisinopril [...] 4 Active leflunomide (ARAVA) 20 MG tablet TAKE ONE TABLET BY MOUTH EVERY DAY 90 tablet 5 Active Active Problems Problem Noted Date Diagnosed Date High risk medication use 05/10/2024 Assessment & Plan (04/29/2025 9:49 AM EDT): Leflunomide 20 mg PO once/day for RA 1. CBC and CMP every 8-12 weeks to monitor for medication toxicity. 2. No recent serious infections. 3. Refill today Orders: Comprehensive Metabolic Panel; Future C-reactive Protein; Future Sedimentation Rate; Future CBC & Differential; Future Assessment & Plan (12/07/2024 10:49 AM EDT): [...] No recent serious infections. 4. Refill today [facility] (current) use of n on-steroidal anti-inflammatories (nsaid) 05/10/2024 Assessment & Plan (04/29/2025 9:49 AM EDT): She no longer takes Celebrex Assessment & Plan (06/27/2024 1:38 PM EDT): [...] fever reduction Osteoarthritis 05/08/2024 Assessment & Plan (04/29/2025 9:49 AM EDT): Tylenol PRN is ok as directed She has tried taking oral NSAIDS PRN She has tried gabapentin for neuropathic pain She saw a chiropractor Assessment & Plan (12/07/2024 10:49 AM EDT): Tylenol PRN is ok as directed She has tried taking oral NSAIDS PRN She has tried gabapentin for neuropathic pain She saw a chiropractor Orders: CBC Auto Differential; Future Comprehensive Metabolic Panel; Future C-reactive Protein; Future Sedimentation Rate; Future Assessment & Plan (06/28/2024 3:17 PM EDT): * Medications/treatments/interventions tried include: Luna Corrales, She saw a manager of creative services, steroids (oral & topical), she goes to [...] Seropositive rheumatoid arthritis 05/08/2024 Assessment & Plan (04/29/2025 9:49 AM EDT): Medication/treatment/interventions tried include: Luna Corrales, she saw dermatology, steroids (oral and topical), chiropractor, Arava, gabapentin, Celebrex 1st Visit to ACL on 07/16/2019 07/16/2019: IgA RF+, IgM RF+, CCP negative Handout on osteoarthritis given to her to take home Reviewed labs from 04/23/2025. Lab order given to be completed before next visit. Follow up in 3-4 months Continue leflunomide She does notice more pain at night and this does make it hard to sleep at time She is exercising daily Orders: Comprehensive Metabolic Panel; Future C-reactive Protein; Future Sedimentation Rate; Future CBC & Differential; Future Assessment & Plan (12/07/2024 10:49 AM EDT): [...] 1:37 PM EDT): * Medications/treatments/interventions tried include: Tylenol, Aleve, She saw a manager of creative services, steroids (oral & topical), she goes to [...] nausea work up. ESR raised 05/08/2024 12/07/2024 Encounters Date Type Department Care Team Description 07/05/2025 Refill [facility] RHEUMATOLOGY [address] [address] Madhu Leonard DO from Last 3 Months Immunizations Immunization Administration Dates Next Due COVID-19 [...] Sign Reading Time Taken Comments Blood Pressure 124/86 04/29/2025 9:26 AM EDT Pulse 71 04/29/2025 9:26 AM EDT Temperature 35.8 C (96.5 F) 04/29/2025 9:26 AM EDT Respiratory Rate - - Oxygen Saturation - - Inhaled Oxygen Concentration - - Weight 61.3 kg (135 lb 1.6 oz) 04/29/2025 9:26 A M EDT Height 165.1 cm (5' 5 ) 04/29/2025 9:26 AM EDT Body Mass Index 22.48 04/29/2025 9:26 AM EDT Plan of Treatment Upcoming Encounters Date Type Department Care Team (Late st Contact Info) Description 08/19/2025 11:00 AM EST Office Visit [facility] RHEUMATOLOGY [address] [address] Chelsea Herman APRN [address] [phone] Health Maintenance Due Date Last Done Comments Annual Gynecologic Pelvic an d Breast Exam 1966 PAP SMEAR 1987 TDAP/TD VACCINES (1 - Tdap) 11/26/1996 11/25/1996 COLOGUARD 2011 COLON CANCER SCREENING 5 YEA R SIGMOIDOSCOPY 2011 COLONOSCOPY 2011 COLORECTAL CANCER SCREENING 2011 CT COLONOGRAPHY 2011 FECAL OCCULT BLOOD TEST 2011 FIT Testing (1 year) 2011 Pneumococcal Vaccine 50+ (1 of 1 - PCV) 2016 ZOSTER VACCINE (1 of 2) 2016 ANNUAL PHYSICAL 03/19/2024 INFLUENZA VACCINE 04/19/2025 06/05/2024, , 06/25/2022, Additional history exists MAMMOGRAM 11/29/2026 11/29/2024, 11/17, 02/06/2024, Additional history exists HEPATITIS C SCREENING Completed [...] Most Recently Relevant to Health Maintenance Insurance BLUE [facility] PPO Care Teams Environmental Technical Officer Relationship Specialty Start Date End Date Fredrick Oseguera MD [address] [place] [address] [address] [facility] [place] [address] PCP - General Internal Medicine 01/03/17
--- OUTSIDE RECORDS SUMMARY | 2025-08-14 07:17 | XMS_ITS | Encounter Summary ---
Author Organization [facility] Address [address] [place] [address] Care Team Providers Care Client Services Coordinator Name Role Phone Fredrick Oseguera MD Primary Care Provider [phone] Encounter Details Date Type Department Care Team (Late Contact Info) Description 11/27/2024 Results Follow-Up [facility] RHEUMATOLOGY [address] [address] Chelsea Herman APRN [address] [address] Social History Tobacco Use Types Packs/Day Years [...] Description 08/19/2025 11:00 AM EST Office Visit [facility] RHEUMATOLOGY [address] [address] Chelsea Herman APRN [address] [phone] documented as of this encounter Visit Diagnoses Not on filedocumented in this encounter Care Teams Client Services Coordinator Relationship Specialty Start Date End Date Fredrick Oseguera MD [address] [place] [facility] [address] [place] [address] PCP - General Internal Medicine 01/03/17 documented as of this encounter
--- OUTSIDE RECORDS SUMMARY | 2025-08-14 07:17 | XMS_ITS | Encounter Summary ---
Author Organization [facility] Address [address] [place] [address] Care Team Providers Care Blending Kettle Tender Name Role Phone Fredrick Oseguera MD Primary Care Provider [phone] Encounter Details Date Type Department Care Team (Late st Contact Info) Description 07/13/2024 Orders Only External Location [address] [place] [address] Provider, External Social History Tobacco Use Types [...] place to sleep or slept in a mcc (including now)? No 07/16/2024 Utilities Answer Date [...] EST Ovarian Cancer Screening [facility]ne[facility] [address] [facility] [place] [address] documented as of this encounter Procedures Procedure [...] documented as of this encounter Care Teams Blending Kettle Tender Relationship Specialty Start Date End Date Fredrick Oseguera MD [address] [place] [address] [address] [place] [address] PCP - General 05/14/22 documented as of this encounter
[2025-08-14 08:32] LABS: Hematocrit 42.6 % (37.0-47.0); Hemoglobin 13.5 g/dL (12.2-16.2); Immature Granulocytes % 0.3 %; Mean Corpuscular HGB Conc 31.7 g/dL (31.8-35.4); Mean Corpuscular Hemoglobin 27.9 pg (27.0-31.2); Mean Corpuscular Volume 88.0 fl (81-99); Nucleated Red Blood Cells % 0 %; Platelet Count 238 K/mm3 (142-424); Red Blood Count 4.84 M/mm3 (4.20-5.40); Red Cell Distribution Width-SD 40.1 fL; White Blood Count 6.5 K/mm3 (4.8-10.8)
[2025-08-14 09:15] LABS: Alanine Aminotransferase 12 U/L (12-78); Albumin Level 4.7 g/dl (3.5-5.0); Albumin/Globulin Ratio 1.7 (1.1-1.8); Alkaline Phosphatase 97 U/L (38-126); Anion Gap 11.4 mEq/L (5-15); Aspartate Amino Transferase 31 U/L (14-36); Bilirubin,Total 0.4 mg/dl (0.2-1.3); Blood Urea Nitrogen 14 mg/dl (7-17); Calcium 9.6 mg/dl (8.4-10.2); Carbon Dioxide 28 mmol/L (22.0-30.0); Chloride 101 mmol/L (98-107); Creatinine,Serum 0.80 mg/dl (0.52-1.04); Estimated Glomerular Filt Rate 74 ml/min (>60); GFR (African American) 89 ML/MIN (>60); Globulin 2.7 g/dL (1.3-3.2); Glucose 98 mg/dl (74-100); Potassium 4.4 mmoL/L (3.5-5.1); Sodium 136 mmol/L (136-145); Total Protein,Serum 7.4 g/dl (6.3-8.2)
[2025-08-14 09:22] LABS: C-Reactive Protein 0.6 mg/L (0-4)
== END 2025-08-14 23:59 | disposition home or self-care (01) ==
LOC: LAB 07:14
PROVIDERS: PCP Internal Medicine; Visit Provider Nurse Practitioner Family
DX: M05.9 Rheumatoid arthritis with rheumatoid factor, unspecified (principal)
CPT/HCPCS: 36415; 80053; 85025; 85651; 86140